=== PATIENT | male | born 1965 | race Caucasian/White ===

== ENCOUNTER 2023-01-31 13:49 | Outpatient (AMB) | payer OTHER, SELFPAY ==
[2023-01-31 14:10] VITALS: BP 126/80; PULSE 94; BMI 29.5
--- NOTE | 2023-01-31 14:10 | A.OFFVIS_ITS ---
Intake Vital Signs 01/31/23 14:10 Height 5 ft 8 in Weight 194 lb 0.108 oz BMI 29.5 BP 126/80 Blood Pressure Location Lt brachial Position Sitting Pulse 94 Intake Visit Reasons: [facility] [place] and cardiac cath Intake Note: Follow-up follow-up Cardiac cath at [facility] Intelligence Specialist Required: No Medication List - Last Reconciled 01/31/23 by Sumanth Cunha MD aspirin (Adult Aspirin Regimen) 81 mg PO DAILY atorvastatin 80 mg PO BEDTIME carvedilol 6.25 mg PO BID metformin 500 mg PO DAILY ticagrelor (Brilinta) 90 mg PO BID valsartan 40 mg PO DAILY HPI HPI Comments History of Present Illness Details Pleasant 57 year gentleman who is here for follow-up. He was seen and [facility] when he presented with anterior ST- elevation DE. He had a occluded mid LAD which was treated with drug-eluting stent. He had approximately 80% mid left circumflex stenosis. Echocardiography has shown EF of 35-40%. He is denying any exertional symptoms on follow-up. No chest pains or shortness of breath. No bleeding issues. Taking medications regularly. He has been dieting and exercising regularly and has lost 6 lb in the last week. [facility] Surgical History (Updated 01/31/23 @ 14:17 by GARY Pagan) Hx of cardiac cath Family History (Updated 01/31/23 @ 14:18 by GARY Pagan) Father CAD (coronary artery disease) Mother Cancer Social History (Updated 01/31/23 @ 14:18 by GARY Pagan) Patient Tobacco Use Status: Never used Tobacco Review of Systems Const Denies chills, Denies fatigue, Denies fever(s), Denies frequent falls, Denies weakness, Denies weight gain and Denies weight loss ENT Denies dizziness Card Denies chest pain, Denies leg edema, Denies lightheadedness, Denies palp itations, Denies dyspnea, Denies dyspnea on exertion, Denies orthopnea and Denies other (loss of consciousness) Resp Denies cough, Denies dyspnea and Denies dyspnea on exertion GI Denies hematochezia and Denies change in stool character Musc Denies abnormal gait, Denies muscle weakness, Denies numbness, Denies radiating pain into limb and Denies tingling Neuro Denies abnormal gait, Denies dizziness, Denies frequent falls, Denies numbness, Denies tingling and Denies weakness Endo Denies fatigue and Denies palpitations Physical Exam Vital Signs: Last Vital Signs Pulse 94 01/31/23 14:10 BP 126/80 01/31/23 14:10 BMI result Body Mass Index 29.5 GENERAL APPEARANCE: in no acute distress, pleasant. NECK: no carotid bruit, no jugular venous distention. SKIN: no suspicious lesions, warm and dry. HEART: no murmurs, regular rate and rhythm. LUNGS: clear to auscultation bilaterally. ABDOMEN: soft, nontender. EXTREMITIES: no edema. PERIPHERAL PULSES: equal. NEUROLOGIC: No gross deficits, AAO X 3 Assessment & Plan Assessment & Plan (1) Stable angina: Code(s): I20.8 - Other forms of angina pectoris (2) STEMI (ST elevation myocardial infarction): Code(s): I21.3 - ST elevation (STEMI) myocardial infarction of unspecified site Plan Pleasant 57 year gentleman who is here for follow-up. He had anterior wall DE on January 24 and underwent PCI to mid LAD. He is currently taking aspirin and Brilinta. He has residual disease in the circumflex which is approximately 80% angiographically. We discussed about management of left circumflex artery. I have given him the options that we can wait and do an ischemia driven strategy. Other option is to treat the circumflex as full revascularization has shown better outcomes in reducing the risk of cardiovascular and myocardial infarction (COMPLETE trial). He is more inclined towards treating the LCx. We will arrange PCI to LCx. He will continue same medications for now. I have advised him to continue diet and exercise as before. He is doing cardiac rehabilitation which he can continue after PCI to left circumflex artery. Continue valsartan. Given cardiomyopathy we will arrange repeat echocardiography in few months. He will see us back in 3 months. Thank you for allowing me to participate in the care of your patient. Please feel free to contact me if you have any questions. Orders: Orders Cardiac Cath LT w PCI Today I20.8 - Other forms of angina pectoris Coding Level of Care Code Est Pt Level 4 (42555) Diagnoses Stable angina I20.8 STEMI (ST elevation myocardial infarction) I21.3
== END 2023-01-31 15:17 | disposition home or self-care (01) ==
PROVIDERS: Visit Provider Internal Medicine Cardiovascular Disease
DX: I20.8 Other forms of angina pectoris (principal); I21.3 ST elevation (STEMI) myocardial infarction of unspecified site
CPT/HCPCS: 99214

== ENCOUNTER → 2023-01-31 13:49 | Outpatient (BNVA) | payer OTHER, SELFPAY | PROVIDERS: Visit Provider Internal Medicine Cardiovascular Disease ==

== ENCOUNTER → 2023-02-05 23:59 | Outpatient (BNV) | payer OTHER, SELFPAY | PROVIDERS: Visit Provider Internal Medicine Cardiovascular Disease | DX: I25.118 Atherosclerotic heart disease of native coronary artery with other forms of angina pectoris (principal) | CPT/HCPCS: 92928; 99152 ==

== ENCOUNTER 2023-02-13 10:07 | Outpatient (REF) | payer OTHER, SELFPAY ==
[2023-02-13 11:46] LABS: Hematocrit 39.5 % (42.0-52.0); Hemoglobin 13.1 g/dl (14.0-18.0); Mean Corpuscular HGB Conc 33.2 g/dl (31.0-36.0); Mean Corpuscular Hemoglobin 28.5 pg (27.0-33.0); Mean Corpuscular Volume 86.1 fL (80.0-98.0); Platelet Count 264 X10*3/uL (160-400); Red Blood Count 4.59 X10*6/uL (4.60-5.80); Red Cell Distribution Width 12.1 % (11.0-16.0); White Blood Count 6.4 X10*3/uL (4.8-10.8)
[2023-02-13 12:10] LABS: B Type Natriuretic Peptide 106 pg/mL (<100)
[2023-02-13 12:11] LABS: Alanine Aminotransferase 37 U/L (0-40); Albumin Level 4.5 g/dL (3.5-5.0); Alkaline Phosphatase 83 U/L (39-117); Anion Gap 13 (12-20); Aspartate Amino Transferase 21 U/L (5-37); Bilirubin Direct 0.3 mg/dL (0.0-0.5); Bilirubin Total 0.8 mg/dL (0.0-1.0); Blood Urea Nitrogen 24 mg/dL (9-16); Calcium 9.7 mg/dL (8.4-10.2); Carbon Dioxide 25 mmol/L (22-29); Chloride 101 mmol/L (96-108); Estimated Glomerular Filt Rate > 60; Glucose Random 162 mg/dL (60-115); Potassium 4.4 mmol/L (3.3-5.1); Sodium 135 mmol/L (135-145); Total Protein 7.1 g/dL (6.5-8.0)
== END 2023-02-13 10:08 | disposition home or self-care (01) ==
LOC: HO.LAB 10:07
PROVIDERS: PCP Internal Medicine; Visit Provider Internal Medicine Cardiovascular Disease
DX: I20.89 Other forms of angina pectoris (principal)
CPT/HCPCS: 36415; 80048; 80076; 83880; 84484; 85027

== ENCOUNTER 2023-02-19 14:50 | Outpatient (AMB) | payer OTHER, SELFPAY ==
[2023-02-19 15:04] VITALS: BP 110/82; PULSE 78; BMI 29.5
--- NOTE | 2023-02-19 15:04 | A.OFFVIS_ITS ---
Intake Vital Signs 02/19/23 15:04 Height 5 ft 8 in Weight 194 lb 0.108 oz BMI 29.5 BP 110/82 Blood Pressure Location Lt brachial Position Sitting Pulse 78 Intake Visit Reasons: 2 wk s/p cath Intake Note: 2 wk s/p cath Chief Mate Required: No Medication List - Last Reconciled 02/19/23 by Alize Ayers NP-C aspirin (Adult Aspirin Regimen) 81 mg PO DAILY atorvastatin 80 mg PO BEDTIME carvedilol 6.25 mg PO BID ticagrelor (Brilinta) 90 mg PO BID HPI 2 wk s/p cath HPI Details Te is a 57-year-old male with no significant past medical for history who recently had anterior STEMI with stent placement to the mid LAD, residual left circumflex stenosis and repeat cardiac catheterization with stenting to the left circumflex. Twelve days after his stenting he had left arm weakness and left face numbness and was [place] [facility] [place]. MRI showed no acute stroke and his symptoms resolved. Today he reports that he has been feeling weak and tired since his cardiac catheterization. He has not been getting any chest discomfort. He denies shortness of breath, palpitations, presyncope, syncope, PND, orthopnea or edema. His right radial catheterization site is healing well. He no longer has any left arm weakness. No new neurological symptoms. Taking meds as directed. No bleeding issues reported. 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 Asking about going on disability as his work is very emotionally stressful. [facility] Medical History (Updated 02/21/23 @ 16:36 by KATHERINE Joseph) STEMI (ST elevation myocardial infarction) Surgical History (Updated 02/21/23 @ 16:36 by KATHERINE Joseph) Hx of cardiac cath Family History Father CAD (coronary artery disease) Mother Cancer Social History Patient Tobacco Use Status: Never used Tobacco Review of Systems Const Details: Fatigue All systems reviewed & are unremarkable except as noted in HPI and below Card Denies chest pain at rest and Denies chest pain with activity Neuro Details: Had left arm weakness and left face numbness which has fully resolved Physical Exam Vital Signs: Last Vital Signs Pulse 78 02/19/23 15:04 BP 110/82 02/19/23 15:04 BMI result Body Mass Index 29.5 Const General: cooperative, healthy appearing, comfortable and no acute distress Orientation/consciousness: patient oriented x3 HEENT Head: Yes normal to inspection Neck Neck: Yes normal visual inspection Resp Effort & Inspection: normal respiratory effort Auscultation: clear to auscultation bilaterally, no crackles, no rales, no rhonchi and no wheezes Cardio Jugular venous distension: no JVD Rate: regular rate Rhythm: regular rhythm Heart sounds: S1 normal heart sound present, S2 normal heart sound present, no murmurs and no rubs Neuro General: patient oriented x3 Extrem Other: Right radial catheterization site well healed, easily palpable radial pulse and hand assessment normal General: Yes normal to inspection Psych Appearance: grossly normal Mental Status: mental status grossly normal Speech and movement: Normal speech and movement present Assessment & Plan Assessment & Plan (1) STEMI (ST elevation myocardial infarction): Code(s): I21.3 - ST elevation (STEMI) myocardial infarction of unspecified site Qualifiers: Involved coronary artery: LAD coronary artery Qualified Code(s): I21.02 - ST elevation (STEMI) myocardial infarction involving left anterior descending coronary artery Plan: Presented [place] [facility] with chest discomfort on 01/24/2023. EKG showed ST elevations anteriorly. Underwent cardiac catheterization showing mid LAD 100% stenosis, left circumflex mid 75% stenosis, JEREMIAH placed to the LAD. He started on aspirin indefinitely. Brilinta 90 mg b.i.d. uninterrupted for at least 1 year. Echocardiogram initially showed EF 35-40%, mid to distal anterior septal wall akinetic, mid to distal inferior septal wall akinetic, apex dyskinetic, no definite LV thrombus noted. He then underwent repeat cardiac catheterization on 02/05/2023 and had JEREMIAH placed to the left circumflex for 80% stenosis. Mid LAD stent was patent. On 02/17 he presented to [facility] with report of intermittent chest pain, left arm weakness and left face numbness. Troponins were negative. A CT angio of the head and neck was negative for acute findings. MRI of the brain also negative for acute stroke. Echocardiogram done 02/18/2023 showed mild LVH, EF 50-60%, can not exclude mid to distal septal wall hypokinesis, RV function normal. His symptoms resolved. Today he reports that he has been doing well for the last 2 days since his hospital discharge. He has had no recurrent neurological type symptoms. He has no chest discomfort at rest or with light activity. He plans to start cardiac rehab in the near future. He is reporting ongoing fatigue. Spent time reviewing all the above with him. Signs and symptoms of angina discussed. Continue medical management with aspirin, Brilinta, high-dose atorvastatin, carvedilol. Blood pressure on low side at 110/82. Will hold off on addition of Entresto as blood pressure low and EF has normalized. Will check Holter monitor to assess for any arrhythmia. Pulse is very regular on examination today. Cardiology follow-up in 2 months, sooner if needed. Emergency care if ever needed for concerning symptoms (2) Coronary artery disease: Code(s): I25.10 - Atherosclerotic heart disease of [place] coronary artery without angina pectoris Qualifiers: Coronary Disease-Associated Artery/Lesion type: [place] artery [place] vs. transplanted heart: [place] heart Associated angina: without angina Qualified Code(s): I25.10 - Atherosclerotic heart disease of [place] coronary artery without angina pectoris Plan: As above (3) S/P cardiac catheterization: Comment: 01/24/2023, occluded mid LAD, JEREMIAH placed, culprit lesion, residual 80% mid circumflex stenosis Code(s): Z98.890 - Other specified postprocedural states (4) S/P cardiac catheterization: Comment: 02/05/2023 patent stent in the mid LAD, 80% stenosis of mid circumflex, JEREMIAH placed. Code(s): Z98.890 - Other specified postprocedural states Plan: Right radial catheterization site healing well (5) TIA (transient ischemic attack): Comment: 02/17/2023, symptom of left arm weakness and left face numbness. CTA and MRI showed no acute stroke Code(s): G45.9 - Transient cerebral ischemic attack, unspecified Plan: Symptoms concerning for TIA occurring on 02/17/2023. Left arm weakness and left facial numbness. Evaluate [place] [facility] with CTA of the head and neck showing no acute findings. An MRI of the brain showed no stroke. Presumed to have TIA. Continued on aspirin and Brilinta. No residual symptoms. Will check Holter monitor for completeness. Orders: Orders ECG 5 day holter monitor 02/19/23 G45.9 - Transient cerebral ischemic attack, unspecified Medications: New atorvastatin 80 mg PO BEDTIME 90 tabs 1RF carvedilol must administer with a meal/food 3.125 mg PO BID 30 days 60 tabs 5RF Changed From ticagrelor (Brilinta) 90 mg PO BID To ticagrelor (Brilinta) 90 mg PO BID 90 days 180 tabs 3RF Coding Level of Care Code Est Pt Level 4 (23453) Diagnoses ST elevation myocardial infarction involving left anterior descending (LAD) coronary artery I21.02 Involved coronary artery: LAD coronary artery Coronary artery disease involving [place] coronary artery of [place] heart without angina pectoris I25.10 Coronary Disease-Associated Artery/Lesion type: [place] artery [place] vs. transplanted heart: [place] heart Associated angina: without angina S/P cardiac catheterization Z98.890 TIA (transient ischemic attack) G45.9 Time Spent (min) 38
== END 2023-02-19 16:02 | disposition home or self-care (01) ==
PROVIDERS: Visit Provider Nurse Practitioner Family
DX: I21.02 ST elevation (STEMI) myocardial infarction involving left anterior descending coronary artery (principal); I25.10 Atherosclerotic heart disease of native coronary artery without angina pectoris; Z98.890 Other specified postprocedural states; G45.9 Transient cerebral ischemic attack, unspecified
CPT/HCPCS: 99214

== ENCOUNTER → 2023-02-19 14:50 | Outpatient (BNVA) | payer OTHER, SELFPAY | PROVIDERS: Visit Provider Nurse Practitioner Family ==

== ENCOUNTER → 2023-02-26 09:04 | Outpatient (REF) | payer OTHER, SELFPAY ==
--- NOTE | 2023-02-26 09:07 | HM_ITS ---
Conclusion: 1. Patient was monitored for total period of 4 days and 23 hours with significant artifact noted in 1 of the leads 2. Baseline was normal sinus rhythm with average heart rate of 70 beats per minute 3. No significant pauses noted 4. Frequent PVCs noted with total burden of 3% 5. Patient marked the counter 1 time with no dietary record correlating with sinus rhythm MTDD
== END ==
LOC: HO.CARD 09:04
PROVIDERS: PCP Internal Medicine; Visit Provider Nurse Practitioner Family
DX: G45.9 Transient cerebral ischemic attack, unspecified (principal)
CPT/HCPCS: 93242

== ENCOUNTER → 2023-02-26 09:07 | Outpatient (BNV) | payer OTHER, SELFPAY | PROVIDERS: PCP Internal Medicine; Visit Provider Internal Medicine Cardiovascular Disease | DX: I49.3 Ventricular premature depolarization (principal) | CPT/HCPCS: 93244 ==

== ENCOUNTER 2023-04-17 10:15 | Outpatient (AMB) | payer OTHER, SELFPAY ==
[2023-04-17 10:21] VITALS: BP 130/60; PULSE 80; BMI 29.5
--- NOTE | 2023-04-17 10:21 | A.OFFVIS_ITS ---
Intake Vital Signs 04/17/23 10:21 Height 5 ft 8 in Weight 194 lb 0.108 oz BMI 29.5 BP 130/60 Blood Pressure Location Lt brachial Position Sitting Pulse 80 Pulse Source Pulse Oximeter Intake Visit Reasons: f/up per DC Intake Note: f/u per DC patient its fine Planner Scheduler Required: No Accompanied by: Self / Same As Patient Medication List - Last Reconciled 04/17/23 by Sumanth Cunha MD aspirin (Adult Aspirin Regimen) 81 mg PO DAILY atorvastatin 80 mg PO BEDTIME carvedilol 3.125 mg PO BID 30 days ticagrelor (Brilinta) 90 mg PO BID 90 days HPI HPI Comments History of Present Illness Details Pleasant 57 year gentleman who is here for follow-up. He was seen and [facility] when he presented with anterior ST- elevation MA. He had a occluded mid LAD which was treated with drug-eluting stent. He had approximately 80% mid left circumflex stenosis. Echocardiography has shown EF of 35-40%. He is denying any exertional symptoms on follow-up. No chest pains or shortness of breath. No bleeding issues. Taking medications regularly. He has been dieting and exercising regularly and has lost 6 lb in the last week. 04/17/2023: He returns for follow-up. He was taken for circumflex PCI. Post PCI he had significant symptoms including dizziness lightheadedness and chest pains. He had been to the emergency department if you time. He was told that he has mild TIA also. During 1 of the admissions his losartan was discontinued and since then he has improved back to normal. It appears he has symptoms are related mostly to orthostasis and low blood pressure. He is exercising and feeling good. His ejection fraction on repeat echocardiogram done in [facility] in February was 55-60%. I have reassured him currently. He is taking medication regularly. We have decided to continue the current medications and make no changes currently. [facility] Medical History (Updated 02/21/23 @ 16:36 by KATHERINE Joseph) STEMI (ST elevation myocardial infarction) Surgical History Hx of cardiac cath Family History Father CAD (coronary artery disease) Mother Cancer Social History Patient Tobacco Use Status: Never used Tobacco Review of Systems Const Reports chills, Reports fatigue, Reports fever(s), Reports frequent falls, Reports weakness, Reports weight gain and Reports weight loss ENT Reports dizziness Card Reports chest pain, Reports leg edema, Reports lightheadedness, Reports palpitations, Reports dyspnea and Reports dyspnea on exertion Resp Reports cough, Reports dyspnea and Reports dyspnea on exertion GI Reports hematochezia Musc Reports abnormal gait, Reports muscle weakness, Reports numbness, Reports radiating pain into limb and Reports tingling Neuro Reports abnormal gait, Reports dizziness, Reports frequent falls, Reports numbness, Reports tingling and Reports weakness Endo Reports fatigue and Reports palpitations Physical Exam Vital Signs: Last Vital Signs Pulse 80 04/17/23 10:21 BP 130/60 04/17/23 10:21 BMI result Body Mass Index 29.5 GENERAL APPEARANCE: in no acute distress, pleasant. NECK: no carotid bruit, no jugular venous distention. SKIN: no suspicious lesions, warm and dry. HEART: no murmurs, regular rate and rhythm. LUNGS: clear to auscultation bilaterally. ABDOMEN: soft, nontender. EXTREMITIES: no edema. PERIPHERAL PULSES: equal. NEUROLOGIC: No gross deficits, AAO X 3 Assessment & Plan Assessment & Plan (1) Stable angina: Code(s): I20.8 - Other forms of angina pectoris (2) S/P cardiac catheterization: Comment: 02/05/2023 patent stent in the mid LAD, 80% stenosis of mid circumflex, JEREMIAH placed. Code(s): Z98.890 - Other specified postprocedural states (3) S/P cardiac catheterization: Comment: 01/24/2023, occluded mid LAD, JEREMIAH placed, culprit lesion, residual 80% mid circumflex stenosis Code(s): Z98.890 - Other specified postprocedural states Plan Pleasant 57 year gentleman is here for follow-up. He was seen for anterior wall MA then primary PCI was performed. Subsequent to that he was taken for circumflex PCI. He has done well since then. Blood pressure control is good. He is on aspirin and Brilinta and has no concerns currently. He had a few visits to ER for dizziness and lightheadedness and feeling generally unwell which were due to low blood pressure due to losartan. His blood pressure is better at this stage. His ejection fraction is improved back to normal and he does not need any ARB currently. Same medications for now. He will see us back in few months. Thank you for allowing me to participate in the care of your patient. Please feel free to contact me if you have any questions. Coding Level of Care Code Est Pt Level 4 (53348) Diagnoses Stable angina I20.8 S/P cardiac catheterization Z98.890
== END 2023-04-17 11:08 | disposition home or self-care (01) ==
PROVIDERS: PCP Internal Medicine; Visit Provider Internal Medicine Cardiovascular Disease
DX: I20.8 Other forms of angina pectoris (principal); Z98.890 Other specified postprocedural states
CPT/HCPCS: 99214

== ENCOUNTER → 2023-04-17 10:15 | Outpatient (BNVA) | payer OTHER, SELFPAY | PROVIDERS: PCP Internal Medicine; Visit Provider Internal Medicine Cardiovascular Disease ==

== ENCOUNTER 2023-12-16 15:03 | Outpatient (AMB) | payer OTHER, SELFPAY ==
[2023-12-16 15:09] VITALS: BP 110/60; PULSE 95; BMI 29.7
--- NOTE | 2023-12-16 15:09 | MHC.OFFVIS ---
Vital Signs 12/16/23 15:09 Height 5 ft 8 in Weight 195 lb 5.273 oz BMI 29.7 BP 110/60 Blood Pressure Location Lt brachial Position Sitting Pulse 95 Intake Visit Reasons: (r/s x 2) 4 mos followup Intake Note: 4 mth f/up./ sharp pain on the center of left side for the past 4weeks, left and right arms become tightness. 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 He was seen and [facility] when he presented with anterior ST-elevation ID. He had a occluded mid LAD which was treated with drug-eluting stent. He had approximately 80% mid left circumflex stenosis. Echocardiography has shown EF of 35-40%. He is denying any exertional symptoms on follow-up. No chest pains or shortness of breath. No bleeding issues. Taking medications regularly. He has been dieting and exercising regularly and has lost 6 lb in the last week. 04/17/2023: He returns for follow-up. He was taken for circumflex PCI. Post PCI he had significant symptoms including dizziness lightheadedness and chest pains. He had been to the emergency department if you time. He was told that he has mild TIA also. During 1 of the admissions his losartan was discontinued and since then he has improved back to normal. It appears he has symptoms are related mostly to orthostasis and low blood pressure. He is exercising and feeling good. His ejection fraction on repeat echocardiogram done in [facility] in February was 55-60%. I have reassured him currently. He is taking medication regularly. We have decided to continue the current medications and make no changes currently. : he is here for follow-up. Previously was doing fine but today he has multiple complaints. He said he had a headache recently which was on the back of his head we stayed for 2 days. He also has been significantly forgetful and can not concentrate at work like before. He has been dizzy at times. Noticed that his A1c has gone up because he did not exercise for few months. He was previously taken off the antihypertensives because of dizziness and low blood pressure. He has also stopped the carvedilol. His blood pressure is normal currently. He also has been needle like sensation in the left side of his chest. he also has been experiencing bilateral forearm heaviness which happens randomly and does not happen with activity. A lot of different complaints. He is due to see endocrinology soon. [facility] Medical History (Updated 12/16/23 @ 19:15 by Sumanth Cunha MD) STEMI (ST elevation myocardial infarction) Surgical History Hx of cardiac cath Family History Father CAD (coronary artery disease) Mother Cancer Social History Patient Tobacco Use Status: Never used Tobacco Review of Systems Const Denies chills, Denies fatigue, Denies fever(s), Denies frequent falls, Denies weakness, Denies weight gain and Denies weight loss ENT Denies dizziness Card Reports chest pain, Denies leg edema, Denies lightheadedness, Denies palpitations, Denies dyspnea and Denies dyspnea on exertion Resp Denies cough, Denies dyspnea and Denies dyspnea on exertion GI Denies hematochezia Musc Denies abnormal gait, Denies muscle weakness, Denies numbness, Reports radiating pain into limb and Denies tingling Neuro Denies abnormal gait, Denies dizziness, Denies frequent falls, Denies numbness, Denies tingling and Denies weakness Endo Denies fatigue and Denies palpitations Physical Exam Vital Signs: Last Vital Signs Pulse 95 12/16/23 15:09 BP 110/60 12/16/23 15:09 BMI result Body Mass Index 29.7 GENERAL APPEARANCE: in no acute distress, pleasant. NECK: no carotid bruit, no jugular venous distention. SKIN: no suspicious lesions, warm and dry. HEART: no murmurs, regular rate and rhythm. LUNGS: clear to auscultation bilaterally. ABDOMEN: soft, nontender. EXTREMITIES: no edema. PERIPHERAL PULSES: equal. NEUROLOGIC: No gross deficits, AAO X 3 Office Procedures EKG Details: Sinus rhythm 95 beats per minute, normal axis, premature atrial complexes, can not rule out anterior infarct, QTC 427 milliseconds. [id number], Complete Assessment & Plan Assessment & Plan (1) Headache: Code(s): R51.9 - Headache, unspecified Category: Medical (2) Coronary artery disease: Code(s): I25.10 - Atherosclerotic heart disease of [place] coronary artery without angina pectoris Category: Medical Qualifiers: Associated angina: without angina Coronary Disease-Associated Artery/Lesion type: [place] artery [place] vs. transplanted heart: [place] heart Qualified Code(s): I25.10 - Atherosclerotic heart disease of [place] coronary artery without angina pectoris (3) Stable angina: Code(s): I20.8 - Other forms of angina pectoris Category: Medical Plan Pleasant 58 year gentleman who is here for follow-up. He was seen previously for coronary disease. He presented with anterior wall ID and underwent primary PCI to LAD. Subsequently he was taken for circumflex PCI. Subsequent to circumflex PCI he had some dizziness and significant symptoms which brought him to emergency department a few times. It was noted that his blood pressure was low and his medications were adjusted any improved subsequently. At 1 stage also he had admission to hospital and was thought to have a mild TIA. He improved significantly after that but now is returning with multiple complaints. He said he stopped exercising for few months and has gained some weight and also his A1c has been 6.9. He has been experiencing dizziness, headaches, confusion and he is unable to concentrate at work. He had 2 days of persistent headache recently. I have advised him to do a CT head because he is on aspirin and Plavix. We will get this done urgently. This is to rule out any intracranial bleed. I will arrange a stress echocardiogram given his arm heaviness and atypical chest pain and we will also arrange a Holter monitor to rule out any arrhythmia. He he is quite apprehensive about his symptoms. I have advised him to hold the statin for now because sometimes statins can also cause cognitive issues in patients. The link is not strong but till we have clarity about what is going on it would be better to hold. Thank you for allowing me to participate in the care of your patient. Please feel free to contact me if you have any questions. Orders: Orders ECG 7 day holter monitor Today R00.2 - Palpitations CT head/brain wo IV con Today R51.9 - Headache, unspecified CA echo stress exercise Today I25.10 - Atherosclerotic heart disease of [place] coronary artery without angina pectoris Coding Level of Care Code Est Pt Level 5 (48822) Diagnoses Headache R51.9 Coronary artery disease involving [place] coronary artery of [place] heart without angina pectoris I25.10 Associated angina: without angina Coronary Disease-Associated Artery/Lesion type: [place] artery [place] vs. transplanted heart: [place] heart Stable angina I20.8 CPT Codes EKG - CPT: [id number], Complete ([id number])
== END 2023-12-16 16:15 | disposition home or self-care (01) ==
PROVIDERS: PCP Internal Medicine; Visit Provider Internal Medicine Cardiovascular Disease
DX: I25.118 Atherosclerotic heart disease of native coronary artery with other forms of angina pectoris (principal); R51.9 Headache, unspecified; Z98.890 Other specified postprocedural states; I47.10 Supraventricular tachycardia, unspecified
CPT/HCPCS: 93010; 99214

== ENCOUNTER → 2023-12-16 15:03 | Outpatient (BNVA) | payer OTHER, SELFPAY | PROVIDERS: PCP Internal Medicine; Visit Provider Internal Medicine Cardiovascular Disease | DX: I25.118 Atherosclerotic heart disease of native coronary artery with other forms of angina pectoris (principal); R51.9 Headache, unspecified; I25.2 Old myocardial infarction | CPT/HCPCS: 93005 ==

== ENCOUNTER 2023-12-16 16:46 | Outpatient (REF) | payer OTHER, SELFPAY ==
--- NOTE | ~2023-12-16 | CT_ITS ---
EXAMINATION: CT head/brain wo IV con CLINICAL INFORMATION: Reason for Exam HEADACHE COMPARISON: None available TECHNIQUE: Contiguous axial imaging was performed from the skull base to vertex without intravenous contrast. Sagittal and coronal reformatted images were obtained. This CT examination was performed using dose optimization techniques as appropriate, variously including the following: * Automated exposure control * Adjustment of mA and/or kV according to patient size (this includes techniques or standardized protocols for targeted exams where dose is matched to indication/reason for exam; i.e. extremities or head) Use of iterative reconstruction technique DLP: 944 mGy-cm FINDINGS: There is no evidence of acute intracranial hemorrhage. No mass-effect or ventricular shift is noted. No acute, territorial loss of willis-white differentiation. Chronic right cerebellar hemisphere lacunar infarction. Generalized cerebral volume loss with associated ventricular and sulcal prominence.Periventricular and subcortical white matter hypodensity is nonspecific but likely represents chronic microvascular ischemic change. No depressed calvarial fracture. The partially visualized paranasal sinuses have trace mucosal thickening. The mastoid air cells are clear. CT/CT head/brain wo IV con IMPRESSION: No acute intracranial hemorrhage or territorial loss of willis-white differentiation. Chronic right cerebellar hemisphere lacunar infarction.
== END 2023-12-16 16:47 | disposition home or self-care (01) ==
LOC: HO.CT 16:46
PROVIDERS: Visit Provider Internal Medicine Cardiovascular Disease
DX: R51.9 Headache, unspecified (principal)
CPT/HCPCS: 70450

== ENCOUNTER 2024-02-26 15:00 | Outpatient (AMB) | payer OTHER, SELFPAY ==
[2024-02-26 15:01] VITALS: BP 150/90; PULSE 90; BMI 30.4
--- NOTE | 2024-02-26 15:01 | A.OFFVIS_ITS ---
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 He was seen and [facility] when he presented with anterior ST- elevation [place]. He had a occluded mid LAD which was treated with drug-eluting stent. He had approximately 80% mid left circumflex stenosis. Echocardiography has shown EF of 35-40%. He is denying any exertional symptoms on follow-up. No chest pains or shortness of breath. No bleeding issues. Taking medications regularly. He has been dieting and exercising regularly and has lost 6 lb in the last week. 04/17/2023: He returns for follow-up. He was taken for circumflex PCI. Post PCI he had significant symptoms including dizziness lightheadedness and chest pains. He had been to the emergency department if you time. He was told that he has mild TIA also. During 1 of the admissions his losartan was discontinued and since then he has improved back to normal. It appears he has symptoms are related mostly to orthostasis and low blood pressure. He is exercising and feeling good. His ejection fraction on repeat echocardiogram done in [facility] in February was 55-60%. I have reassured him currently. He is taking medication regularly. We have decided to continue the current medications and make no changes currently. : he is here for follow-up. Previously was doing fine but today he has multiple complaints. He said he had a headache recently which was on the back of his head we stayed for 2 days. He also has been significantly forgetful and can not concentrate at work like before. He has been dizzy at times. Noticed that his A1c has gone up because he did not exercise for few months. He was previously taken off the antihypertensives because of dizziness and low blood pressure. He has also stopped the carvedilol. His blood pressure is normal currently. He also has been needle like sensation in the left side of his chest. he also has been experiencing bilateral forearm heaviness which happens randomly and does not happen with activity. A lot of different complaints. He is due to see endocrinology soon. 02/26/24: He returns for follow-up. He has been experiencing some shortness of breath with activities. He also feels weak when he is walking. He has noticed his blood pressure to be elevated at home. In the office currently his blood pressure is elevated. He previously was on antihypertensive medications but he was getting low blood pressures and was quite symptomatic from that and during an admission at [facility] he was taken off the antihypertensive medications. He is denying palpitations but EKGs showing some PVCs. [facility] Medical History (Updated 02/26/24 @ 15:39 by Sumanth Cunha MD) STEMI (ST elevation myocardial infarction) Surgical History Hx of cardiac cath Family History Father CAD (coronary artery disease) Mother Cancer Social History Patient Tobacco Use Status: Never used Tobacco Review of Systems Const Denies chills, Denies fatigue, Denies fever(s), Denies frequent falls, Denies weakness, Denies weight gain and Denies weight loss ENT Denies dizziness Card Denies chest pain, Denies leg edema, Denies lightheadedness, Denies palpitations, Reports dyspnea and Reports dyspnea on exertion Resp Denies cough, Reports dyspnea and Reports dyspnea on exertion GI Denies hematochezia Musc Denies abnormal gait, Denies muscle weakness, Denies numbness, Denies radiating pain into limb and Denies tingling Neuro Denies abnormal gait, Denies dizziness, Denies frequent falls, Denies numbness, Denies tingling and Denies weakness Endo Denies fatigue and Denies palpitations Physical Exam Vital Signs: Last Vital Signs Pulse 90 02/26/24 15:01 BP 150/90 H 02/26/24 15:01 BMI result Body Mass Index 30.4 GENERAL APPEARANCE: in no acute distress, pleasant. NECK: no carotid bruit, no jugular venous distention. SKIN: no suspicious lesions, warm and dry. HEART: no murmurs, regular rate and rhythm with irregularities. LUNGS: clear to auscultation bilaterally. ABDOMEN: soft, nontender. EXTREMITIES: no edema. PERIPHERAL PULSES: equal. NEUROLOGIC: No gross deficits, AAO X 3 Office Procedures EKG Details: NSR 84/min, PVCs, nonspecific ST-T wave abnormality, QTc 406 msec. [id number], Complete Assessment & Plan Assessment & Plan (1) STRANGE (dyspnea on exertion): Code(s): R06.09 - Other forms of dyspnea Category: Medical (2) Stable angina: Code(s): I20.8 - Other forms of angina pectoris Category: Medical (3) PVC (premature ventricular contraction): Code(s): I49.3 - Ventricular premature depolarization Category: Medical Plan 58-year-old gentleman who is here for follow-up. He has known history of coronary artery disease with previous PCI to LAD and circumflex arteries. He has been on dual antiplatelet therapy at this stage. Blood pressure is elevated and he has premature ventricular complexes on the EKG. I have advised him to start carvedilol 3.125 mg twice a day. He is very sensitive to medications and I am starting at low dose. We will do some basic blood workup today. I will arrange an echocardiogram for him. Will see us back in couple of months. Thank you for allowing me to participate in the care of your patient. Please feel free to contact me if you have any questions. Orders: Orders Basic Metabolic Panel Today R06.09 - Other forms of dyspnea Complete Blood Count no Diff Today R06.09 - Other forms of dyspnea B Type Natriuretic Peptide Today R06.09 - Other forms of dyspnea TSH reflex Free T4 Today R06.09 - Other forms of dyspnea Magnesium Today R06.09 - Other forms of dyspnea CA echo transthorac w con Today R06.09 - Other forms of dyspnea Medications: New carvedilol must administer with a meal/food 3.125 mg PO BID 60 tabs 3RF R06.09 - Other forms of dyspnea Coding Level of Care Code Est Pt Level 4 (49445) Diagnoses STRANGE (dyspnea on exertion) R06.09 Stable angina I20.8 PVC (premature ventricular contraction) I49.3 CPT Codes EKG - CPT: [id number], Complete ([id number])
== END 2024-02-26 16:18 | disposition home or self-care (01) ==
PROVIDERS: PCP Internal Medicine; Visit Provider Internal Medicine Cardiovascular Disease
DX: R06.09 Other forms of dyspnea (principal); I20.89 Other forms of angina pectoris; I49.3 Ventricular premature depolarization
CPT/HCPCS: 93010; 99214

== ENCOUNTER → 2024-02-28 10:57 | Outpatient (REF) | payer OTHER, SELFPAY ==
--- NOTE | 2024-02-28 11:05 | CA_ITS ---
Acquisition Time: 2024-02-28 11:02:14 Total Exercise Time: 00:11:30 Test Indications: Dyspnea Medications: ASA ATORVASTATIN CLOPIDOGREL CARVEDILOL Protocol: DOUG Max HR: 157 BPM 96% of Pred: 163 BPM Max BP: 176/086 mmHG Max Work Load: 13.7 METS Exercise stress test with exercise 11 min 30 sec of Doug protocol, achieving 96% MPHR, with mild sob, no chest discomfort, with isolated PACs and PVCs, with normotensive response to exercise, with horizontal ST depression aVF and V4-V5 on peak exercise EKG tracing ( could be artifactual), then J point depressions with upsloping STs that improves quickly. EKGs normal by 1 min of recovery and remainder of recovery - less likely to be ischemic findings. Echo images obtained by tech at rest and immediately post peak exercise. Definity contrast used for rest images only. Pt developed a side effect of sharp low back pain post definity injection ( known side effect) which resolved after a few minutes without any treatment. Definity not resused for his stress images. Test reviewed with Dr Sherman Referred By: Sumanth Cunha Overread By: YENNIFER FUENTES
== END ==
LOC: HO.CARD 10:57
PROVIDERS: PCP Internal Medicine; Visit Provider Internal Medicine Cardiovascular Disease
DX: I25.10 Atherosclerotic heart disease of native coronary artery without angina pectoris (principal)
CPT/HCPCS: 93350; Q9957

== ENCOUNTER → 2024-02-28 11:05 | Outpatient (BNV) | payer OTHER, SELFPAY | PROVIDERS: PCP Internal Medicine; Visit Provider Nurse Practitioner Family | DX: I25.2 Old myocardial infarction (principal); I49.1 Atrial premature depolarization; I49.3 Ventricular premature depolarization | CPT/HCPCS: 93016; 93018; 93350; 93352 ==

== ENCOUNTER → 2024-03-02 12:59 | Outpatient (REF) | payer OTHER, SELFPAY ==
--- NOTE | 2024-03-02 13:03 | CA_ITS ---
Transthoracic Echocardiogram Patient (Last, First, Middle): Te Jaramillo, Gender: Male Date of : 1965 Age: 58 Procedure Date: 03/02/2024 Procedure Type: Transthoracic Echocardiogram Location: OP Height: 172.72 cm Weight: 88. kg BSA: 2.02 m2 Heart Rate: bpm BP: 124 / 80 mmHg Supervisor D[employer]: BRIDGET Referring MD: Sumanth Cunha MD Cooper Apprentice: Sumanth Cunha MD Symptoms: R06.09 - Other forms of dyspnea Study Quality: Fair Conclusions: - Normal left ventricular size and systolic function. There is mildly increased left ventricular wall thickness. The visually estimated ejection fraction is between 55-60%. - Regional wall motion abnormalities can not be excluded due to suboptimal endocardial definition and apical foreshortening. - Normal right ventricular cavity size and systolic function. Findings Left Ventricle Normal left ventricular size and systolic function. There is mildly increased left ventricular wall thickness. The visually estimated ejection fraction is between 55-60%. Regional wall motion abnormalities can not be excluded due to suboptimal endocardial definition. Diastolic function is normal for age. Right Ventricle Normal right ventricular cavity size and systolic function. Atria The left atrium is normal in size. Aortic Valve Normal aortic valve structure and function. There is no aortic valve stenosis. There is no aortic valve regurgitation. Mitral Valve Normal mitral valve structure and function. There is no mitral valve regurgitation. There is no mitral valve stenosis. Pulmonic Valve The pulmonic valve is likely normal. Tricuspid Valve Normal tricuspid valve structure. There is trace tricuspid valve regurgitation. Normal right atrial pressure. There is no evidence of pulmonary hypertension. Great Vessels All visible segments of the aorta are normal in size. Venous The inferior vena cava is normal in size and collapses greater than 50% with inspiration. Pericardium/Pleural There is no evidence of pericardial effusion. Prior Study Comparison No prior study available for comparison. Measurements 2D Linear Measurements IVSd: 1.25 0.6-0.9/0.6-1.0 cm LVIDd: 4.02 3.9-5.3/4.2-5.9 cm LVIDd Index: 1.99 2.4-3.2/2.2-3.1 cm/m2 LVIDs: 2.64 2.0-3.6 cm LVPWd: 1.26 0.7-1.1 cm Ao Root: 3.70 2.1-3.5 cm LA Diam: 3.20 2.7-3.8/3.0-4.0 cm LAIDs Index: 1.58 1.5-2.3 cm/m2 LV Mass: 222.02 67-162/88-224 g LV Mass Index: 109.91 43-95/49-115 g/m2 LVOT Diam: 2.10 3.0+(-)1.3 cm 2D Systolic Function EF 4C: 52.80 >55% EF 2C: 40.40 >55% EF BiP: 46.70 >55% Mitral Valve MV Pk E: 0.46 MV PK A: 0.74 MV Decel Time: 163.00 E/A: 0.60 E'Lateral: 9.46 E'Medial: 5.55 E/E' Med: 8.30 E/E' Lat: 4.90 PHT: 48.00 MVA PHT: 4.58 Decel [place]: 2.82 Aortic Valve AoV Pk Rafita: 1.09 AoV Mn Rafita: 0.68 AoV VTI: 0.21 AoV Pk Grad: 5.00 Aov Mn Grad: 2.00 TIM Cont.VTI: 2.99 LVOT LVOT Pk Rafiat: 0.89 LVOT Mn Rafita: 0.51 LVOT VTI: 0.18 LVOT Pk Grad: 3.00 LVOT Mn Grad: 1.00 LVOT Diam: 2.10 LVOT Area: 3.46 Diastolic Function MV Pk E: 0.46 MV Pk A: 0.74 E/A: 0.60 E'Medial: 5.55 E/E' Med: 8.30 E' Laterial: 9.46 E/E' Lat: 4.90 Right Ventricle TAPSE (mm): 30.00 TVS' Rafita: 11.00 Tricuspid Valve TR Pk Rafita: 1.88 TR Pk Grad: 14.00 RA Press: 3.00 RVSP: 17.00 Great Vessels Aorta Ao Root-2D: 3.70 2.0-3.7 cm Ao Asc: 3.30 2.1-3.4 cm Pulmonary Valve PV Pk Rafita: 1.06 Peak PV Grad: 4.00 Updated in Other Vendor System with Status of Final Sumanth Cunha MD electronically signed on 03/02/2024 8:51:12 PM with status of Final
== END ==
LOC: HO.CARD 12:59
PROVIDERS: PCP Internal Medicine; Visit Provider Internal Medicine Cardiovascular Disease
DX: R06.09 Other forms of dyspnea (principal)
CPT/HCPCS: 93306

== ENCOUNTER → 2024-03-02 13:03 | Outpatient (BNV) | payer OTHER, SELFPAY | PROVIDERS: PCP Internal Medicine; Visit Provider Internal Medicine Cardiovascular Disease | DX: R06.09 Other forms of dyspnea (principal) | CPT/HCPCS: 93306 ==

== ENCOUNTER 2024-04-08 15:30 | Outpatient (AMB) | payer OTHER, SELFPAY ==
[2024-04-08 15:33] VITALS: BP 110/72; PULSE 76; BMI 31.0
--- NOTE | 2024-04-08 15:33 | MHC.OFFVIS ---
Vital Signs 04/08/24 15:33 Height 5 ft 8 in Weight 204 lb 2.369 oz BMI 31.0 BP 110/72 Blood Pressure Location Lt brachial Position Sitting Pulse 76 Pulse Source Pulse Oximeter Intake Visit Reasons: 3 mth f/up Intake Note: 3 mth f/up/echo 03/02 Hay Sorter Required: No Accompanied by: Self / Same As Patient Allergies perflutren [From [employer]] Adverse Reaction (Verified 03/02/24 07:44) Back Pain Medication List - Last Reconciled 04/08/24 by Sumanth Cunha MD aspirin (Adult Aspirin Regimen) 81 mg PO DAILY atorvastatin 80 mg PO BEDTIME carvedilol 3.125 mg PO BID clopidogrel 75 mg PO DAILY HPI Comments Details: Pleasant 58 year gentleman who is here for follow-up. He was seen and [facility] when he presented with anterior ST-elevation NE. He had a occluded mid LAD which was treated with drug-eluting stent. He had approximately 80% mid left circumflex stenosis. Echocardiography has shown EF of 35-40%. He is denying any exertional symptoms on follow-up. No chest pains or shortness of breath. No bleeding issues. Taking medications regularly. He has been dieting and exercising regularly and has lost 6 lb in the last week. 04/17/2023: He returns for follow-up. He was taken for circumflex PCI. Post PCI he had significant symptoms including dizziness lightheadedness and chest pains. He had been to the emergency department if you time. He was told that he has mild TIA also. During 1 of the admissions his losartan was discontinued and since then he has improved back to normal. It appears he has symptoms are related mostly to orthostasis and low blood pressure. He is exercising and feeling good. His ejection fraction on repeat echocardiogram done in [facility] in February was 55-60%. I have reassured him currently. He is taking medication regularly. We have decided to continue the current medications and make no changes currently. : he is here for follow-up. Previously was doing fine but today he has multiple complaints. He said he had a headache recently which was on the back of his head we stayed for 2 days. He also has been significantly forgetful and can not concentrate at work like before. He has been dizzy at times. Noticed that his A1c has gone up because he did not exercise for few months. He was previously taken off the antihypertensives because of dizziness and low blood pressure. He has also stopped the carvedilol. His blood pressure is normal currently. He also has been needle like sensation in the left side of his chest. he also has been experiencing bilateral forearm heaviness which happens randomly and does not happen with activity. A lot of different complaints. He is due to see endocrinology soon. 02/26/24: He returns for follow-up. He has been experiencing some shortness of breath with activities. He also feels weak when he is walking. He has noticed his blood pressure to be elevated at home. In the office currently his blood pressure is elevated. He previously was on antihypertensive medications but he was getting low blood pressures and was quite symptomatic from that and during an admission at [facility] he was taken off the antihypertensive medications. He is denying palpitations but EKGs showing some PVCs. 04/08/2024: He is here for follow-up. He is feeling great. Blood pressure is well controlled. He is taking carvedilol 3.125 mg twice a day. No palpitations or PVCs. No chest discomfort. [facility] Medical History (Updated 02/26/24 @ 15:39 by Sumanth Cunha MD) STEMI (ST elevation myocardial infarction) Surgical History Hx of cardiac cath Family History Father CAD (coronary artery disease) Mother Cancer Social History Patient Tobacco Use Status: Never used Tobacco Review of Systems Const Denies chills, Denies fatigue, Denies fever(s), Denies frequent falls, Denies weakness, Denies weight gain and Denies weight loss ENT Denies dizziness Card Denies chest pain, Denies leg edema, Denies lightheadedness, Denies palpitations, Denies dyspnea and Denies dyspnea on exertion Resp Denies cough, Denies dyspnea and Denies dyspnea on exertion GI Denies hematochezia Musc Denies abnormal gait, Denies muscle weakness, Denies numbness, Denies radiating pain into limb and Denies tingling Neuro Denies abnormal gait, Denies dizziness, Denies frequent falls, Denies numbness, Denies tingling and Denies weakness Endo Denies fatigue and Denies palpitations Physical Exam Vital Signs: Last Vital Signs Pulse 76 04/08/24 15:33 BP 110/72 04/08/24 15:33 BMI result Body Mass Index 31.0 GENERAL APPEARANCE: in no acute distress, pleasant. NECK: no carotid bruit, no jugular venous distention. SKIN: no suspicious lesions, warm and dry. HEART: no murmurs, regular rate and rhythm. LUNGS: clear to auscultation bilaterally. ABDOMEN: soft, nontender. EXTREMITIES: no edema. PERIPHERAL PULSES: equal. NEUROLOGIC: No gross deficits, AAO X 3 Assessment & Plan Assessment & Plan (1) Stable angina: Code(s): I20.8 - Other forms of angina pectoris Category: Medical Plan Pleasant 58 year gentleman who is here for follow-up. He has known history of coronary disease with previous anterior wall NE for which he had primary PCI and subsequently had left circumflex PCI for full revascularization. He had some issues after the 2nd PCI with dizziness and low blood pressures and his medications were held. He did well after that but more recently was complaining of multiple complaints. He underwent echocardiography which showed normal LVEF and his apical segments for for shortened and could not be seen but on stress test clearly he had distal LAD territory wall motion abnormality which was unchanged after stress. I have explained to him that he had some heart damage from the 1st myocardial infarction. Overall his LV function is normal. He is stable currently and doing well with current medicines. He will see us back in 4 months. Thank you for allowing me to participate in the care of your patient. Please feel free to contact me if you have any questions. Coding Level of Care Code Est Pt Level 4 (07551) Diagnoses Stable angina I20.8
== END 2024-04-08 15:54 | disposition home or self-care (01) ==
PROVIDERS: PCP Internal Medicine; Visit Provider Internal Medicine Cardiovascular Disease
DX: I20.89 Other forms of angina pectoris (principal)
CPT/HCPCS: 99214

== ENCOUNTER 2024-08-26 14:48 | Outpatient (AMB) | payer OTHER, SELFPAY ==
--- NOTE | 2024-08-26 14:52 | A.OFFVIS_ITS ---
Vital Signs 08/26/24 14:53 Height 5 ft 8 in Weight 197 lb 15.602 oz BMI 30.1 BP 120/80 Blood Pressure Location Lt brachial Position Sitting Pulse 84 Pulse Source Pulse Oximeter Intake Visit Reasons: 4-6m follow up Intake Note: 4-6 mth f/up Walking Dragline Operator Required: No Accompanied by: Self / Same As Patient Allergies perflutren [From [employer]] Adverse Reaction (Verified 03/02/24 07:44) Back Pain Medication List - Last Reconciled 08/26/24 by Sumanth Cunha MD aspirin (Adult Aspirin Regimen) 81 mg PO DAILY atorvastatin 80 mg PO BEDTIME carvedilol 3.125 mg PO BID clopidogrel 75 mg PO DAILY HPI Comments Details: Pleasant 59 year gentleman who is here for follow-up. He was seen and [facility] when he presented with anterior ST- elevation [place]. He had a occluded mid LAD which was treated with drug-eluting stent. He had approximately 80% mid left circumflex stenosis. Echocardiography has shown EF of 35-40%. He is denying any exertional symptoms on follow-up. No chest pains or shortness of breath. No bleeding issues. Taking medications regularly. He has been dieting and exercising regularly and has lost 6 lb in the last week. 04/17/2023: He returns for follow-up. He was taken for circumflex PCI. Post PCI he had significant symptoms including dizziness lightheadedness and chest pains. He had been to the emergency department if you time. He was told that he has mild TIA also. During 1 of the admissions his losartan was discontinued and since then he has improved back to normal. It appears he has symptoms are related mostly to orthostasis and low blood pressure. He is exercising and feeling good. His ejection fraction on repeat echocardiogram done in [facility] in February was 55-60%. I have reassured him currently. He is taking medication regularly. We have decided to continue the current medications and make no changes currently. : he is here for follow-up. Previously was doing fine but today he has multiple complaints. He said he had a headache recently which was on the back of his head we stayed for 2 days. He also has been significantly forgetful and can not concentrate at work like before. He has been dizzy at times. Noticed that his A1c has gone up because he did not exercise for few months. He was previously taken off the antihypertensives because of dizziness and low blood pressure. He has also stopped the carvedilol. His blood pressure is normal currently. He also has been needle like sensation in the left side of his chest. he also has been experiencing bilateral forearm heaviness which happens randomly and does not happen with activity. A lot of different complaints. He is due to see endocrinology soon. 02/26/24: He returns for follow-up. He has been experiencing some shortness of breath with activities. He also feels weak when he is walking. He has noticed his blood pressure to be elevated at home. In the office currently his blood pressure is elevated. He previously was on antihypertensive medications but he was getting low blood pressures and was quite symptomatic from that and during an admission at [facility] he was taken off the antihypertensive medications. He is denying palpitations but EKGs showing some PVCs. 04/08/2024: He is here for follow-up. He is feeling great. Blood pressure is well controlled. He is taking carvedilol 3.125 mg twice a day. No palpitations or PVCs. No chest discomfort. 08/26/24: Here for follow-up. Under stress because he has lost his job recently. He is actively looking for job. He is concerned that he has no insurance and we will not be able to afford his medications. I have advised him to check with the [employer] dollar program. [facility] Medical History (Updated 02/26/24 @ 15:39 by Sumanth Cunha MD) STEMI (ST elevation myocardial infarction) Surgical History Hx of cardiac cath Family History Father CAD (coronary artery disease) Mother Cancer Social History Patient Tobacco Use Status: Never used Tobacco Review of Systems Const Denies chills, Denies fatigue, Denies fever(s), Denies frequent falls, Denies weakness, Denies weight gain and Denies weight loss ENT Denies dizziness Card Denies chest pain, Denies leg edema, Denies lightheadedness, Denies palpitations, Denies dyspnea and Denies dyspnea on exertion Resp Denies cough, Denies dyspnea and Denies dyspnea on exertion GI Denies hematochezia Musc Denies abnormal gait, Denies muscle weakness, Denies numbness, Denies radiating pain into limb and Denies tingling Neuro Denies abnormal gait, Denies dizziness, Denies frequent falls, Denies numbness, Denies tingling and Denies weakness Endo Denies fatigue and Denies palpitations Physical Exam Vital Signs: Last Vital Signs Pulse 84 08/26/24 14:53 BP 120/80 08/26/24 14:53 BMI result Body Mass Index 30.1 GENERAL APPEARANCE: in no acute distress, pleasant. NECK: no carotid bruit, no jugular venous distention. SKIN: no suspicious lesions, warm and dry. HEART: no murmurs, regular rate and rhythm. LUNGS: clear to auscultation bilaterally. ABDOMEN: soft, nontender. EXTREMITIES: no edema. PERIPHERAL PULSES: equal. NEUROLOGIC: No gross deficits, AAO X 3 Assessment & Plan Assessment & Plan (1) Stable angina: Code(s): I20.8 - Other forms of angina pectoris Category: Medical Plan Pleasant 59 year gentleman who is here for follow-up. He has known history of coronary disease with previous anterior wall [place] for which he had primary PCI and subsequently had left circumflex PCI for full revascularization. Clinically has been stable. No exertional symptoms. Blood pressure well cont rolled. He has lost his insurance unfortunately. He will be checking with [employer] program to see if his medications could be covered through the till he gets a new job/insurance. Thank you for allowing me to participate in the care of your patient. Please feel free to contact me if you have any questions. Coding Level of Care Code Est Pt Level 4 (72057) Diagnoses Stable angina I20.8
[2024-08-26 14:53] VITALS: BP 120/80; PULSE 84; BMI 30.1
--- OUTSIDE RECORDS SUMMARY | 2024-08-26 17:31 | XMS_ITS | Clinical Summary ---
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 0 01/26/2023 Active aspirin 81 MG EC tablet Take 1 tablet (81 mg total) by mouth daily. 0 01/26/2023 Active Brilinta 90 MG TABS tablet 0 03/29/2023 Active Family History Relation Name Status Comments Father Mother Social History Tobacco Use Types Packs/Day Years Used Date Smoking Tobacco: Never Smokeless Tobacco: Never Tobacco Cessation:Counseling Given: Not Answered Alcohol Use Standard Drinks/Week Comments Never 0 (1 standard drink = 0.6 oz pur e alcohol) Sex and Gender Information Value Date Recorded Sex Assigned at Male 03/20/2023 3:44 PM EST Gender Identity Not on file Sexual Orientation Not on file Job Start Date Occupation Industry Not on file Not on file Not on file Last Filed Vital Signs Vital Sign Reading Time Taken Comments Blood Pressure 158/98 08/08/2023 4:15 PM EDT Pulse 82 08/08/2023 4:15 PM EDT Temperature 35.8 ??C (96.4 ??F) 08/08/2023 4:15 PM ED T Respiratory Rate 16 04/11/2023 2:13 PM EST Oxygen Saturation 95% 08/08/2023 4:15 PM EDT Inhaled Oxygen Concentration - - Weight 88.9 kg (196 lb) 08/08/2023 4:15 PM EDT Height 170.2 cm (5' 7 ) 08/08/2023 4:15 PM EDT Body Mass Index 30.7 08/08/2023 4:15 PM EDT Plan of Treatment Health Maintenance Due Date Last Done Comments Hepatitis B Vaccines (1 of 3 - 3-dose series) 1966 Hepatitis C Screening 1966 Depression Screening 1978 BMI Counseling 1984 Preventative Health Evaluation 1984 Colon Cancer Screening (Colonoscopy) 2011 Shingrix-Zoster Vaccine (1 o f 2) 2016 DTap / Tdap / Td (2 - Td or Tdap) 04/09/2017 04/09/2007 COVID-19 Vaccine (3 - 2023-2 5 season) 2024 10/08/2020, 09/18/2020 Influenza Vaccine (#1) 2024 Pneumococcal Vaccine Aged Out No long er eligible based on patient's age to complete this topic RSV Ped < 20 months Aged Out No longe r eligible based on patient's age to complete this topic Care Teams Punch Press Operator Helper Relationship Specialty Start Date End Date Fadi Jaramillo MD PCP - General Internal Medicine 03/20/23
--- OUTSIDE RECORDS SUMMARY | 2024-08-26 17:31 | XMS_ITS ---
Author Name [facility] Organization Unknown History of Medication Use Medication Directions Dispensed Refills Start Date End Date Stat us atorvastatin (LIPITOR) tablet 80 mg Take 1 tablet (80 mg total) by mouth daily. 01/26/2023 active aspirin 81 MG EC tablet Take 1 tablet (81 mg total) by mouth daily. 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
== END 2024-08-26 15:11 | disposition home or self-care (01) ==
LOC: HO.HCS 14:49
PROVIDERS: PCP Internal Medicine; Visit Provider Internal Medicine Cardiovascular Disease
DX: I20.89 Other forms of angina pectoris (principal)
CPT/HCPCS: 99214

== ENCOUNTER → 2024-08-26 14:48 | Outpatient (BNVA) | payer OTHER, SELFPAY | PROVIDERS: PCP Internal Medicine; Visit Provider Internal Medicine Cardiovascular Disease ==

== ENCOUNTER 2024-11-05 14:28 | Emergency (ER) | payer OTHER, SELFPAY ==
--- NOTE | ~2024-11-05 | XR_ITS ---
EXAMINATION: XR CHEST CLINICAL INFORMATION: pain COMPARISON: None available. TECHNIQUE: 2 views of the chest were obtained. FINDINGS: Heart and mediastinal contours are within normal limits. Lungs are clear. There is no pleural effusion. XR/XR chest 2V IMPRESSION: No acute disease. Electronically signed by: Francisco Ames MD 11/05/2024 04:39 PM EDT
--- NOTE | 2024-11-05 14:31 | ECG_ITS ---
Test Reason : chest pain Blood Pressure : */* mmHG Vent. Rate : 74 BPM Atrial Rate : 74 BPM P-R Int : 170 ms QRS Dur : 80 ms QT Int : 342 ms P-R-T Axes : 14 2 61 degrees QTcB Int : 379 ms Normal sinus rhythm Low voltage QRS Borderline ECG When compared with ECG of 20-May-2002 23:31, No significant change was found Referred By: Generic ED Physician Electronically Signed By: TOMA BERNARDO
[2024-11-05 15:10] VITALS: BP 137/89; PULSE 72; RESP 18; TEMP 36.3; O2SAT 98; BMI 29.3
--- NOTE | 2024-11-05 15:10 | ED.CHESTPAIN ---
HPI - Chest Pain General Chief Complaint: Chest Pain Stated Complaint: CP, high bp Time Seen by Provider: 11/05/24 15:32 Source: patient, RN notes reviewed and old records reviewed Mode of arrival: ambulatory Limitations: no limitations History of Present Illness ED Provider: Hong NAILS narrative: 59-year-old male past medical history significant for coronary artery disease status post cardiac catheterization x2, TIA presents for evaluation of chest pressure. Patient reports that he woke up this morning around 7:00 a.m. with a severe chest pressure mostly left-sided. He reports the numbness in both of his arms. His pain did not radiate. His pain has improved but still complains of a pressure that is a 4/10. He reports taking an extra dose of carvedilol and he is unsure if this helped his pain. He has some associated shortness of breath. Denies any fevers, chills, cough, palpitations He continues to complain of a ?heaviness in both of my arms. ? Denies any leg swelling Related Data Previous Rx's ?Medication ?Instructions ?Recorded aspirin 81 mg tablet,delayed 81 mg PO DAILY #90 tabs 02/19/24 release (Adult Aspirin Regimen) clopidogrel 75 mg tablet 75 mg PO DAILY #90 tabs 06/15/24 carvedilol 3.125 mg tablet 3.125 mg PO BID #180 tabs 07/15/24 atorvastatin 80 mg tablet 80 mg PO BEDTIME #90 tabs 08/17/24 Allergies Allergy/AdvReac Type Severity Reaction Status Date / Time perflutren (From Definity) AdvReac Back Pain Verified 11/05/24 15:14 Review of Systems Constitutional: Constitutional: Denies body ache(s), Denies chills, Denies fever(s) and Denies headache(s) Eyes: Eyes: Denies blurry vision ENT: Denies dizziness, Denies dry mouth and Denies headache(s) Cardiovascular: Cardiovascular: Reports chest pain, Reports chest pain at rest, Reports dyspnea and Reports dyspnea on exertion Respiratory: Respiratory: Denies cough, Reports dyspnea and Reports dyspnea on exertion Gastrointestinal: Gastrointestinal: Denies abdominal pain, Denies nausea and Denies vomiting Musculoskeletal: Musculoskeletal: Denies back pain Integumentary/Breasts: Skin/Breast: Denies rash Neurologic: Denies dizziness and Denies headache(s) [facility] Past Medical History Medical History (Updated 11/05/24 @ 19:50 by Te Pitts) STEMI (ST elevation myocardial infarction) Surgical History Hx of cardiac cath Family History Family History Father CAD (coronary artery disease) Mother Cancer Social History Social History Patient Tobacco Use Status: Never used Tobacco Smoked in Last 30 Days: No Use of substances other than those prescribed or required for medical reasons: No Advance Directives: No Advance Directives Information Provided: No Do you have a plan to hurt others: No Plan Physical Exam Vital Signs: Vital Signs: Last Vital Signs Temp 98.1 F 11/05/24 18:23 Pulse 73 11/05/24 18:23 Resp 19 11/05/24 18:23 BP 136/79 11/05/24 18:23 Pulse Ox 95 11/05/24 18:23 O2 Del Method Room Air 11/05/24 18:23 BMI result Body Mass Index 29.3 Const: General: healthy appearing, comfortable, no acute distress, alert and awake Nutritional Appearance: well nourished Orientation/consciousness: patient oriented x3 HEENT: Head: Yes normocephalic and Yes atraumatic Eyes: Eyelids: Yes eyelids normal Conjunctivae: conjunctivae normal Sclerae: sclerae normal Corneas: corneas normal Pupils: Equal, round and reactive pupils present EOM: EOMs intact bilaterally Neck: Neck: Yes full ROM Chest: Other: No chest wall tenderness Chest palpation & inspection: normal inspection of the chest, normal palpation of entire chest wall and no crepitus Resp: Effort & Inspection: normal respiratory effort, able to speak in complete sentences, no audible wheezes and not labored Auscultation: clear to auscultation bilaterally Cardio: Rate: regular rate Rhythm: regular rhythm Peripheral pulses: Peripheral pulses 2+ throughout (Radial pulses bilaterally) GI: Inspection: No distended Palpation (GI): Soft to palpation, not firm, nontender, no guarding and not rigid Skin: General skin exam: elasticity normal Neuro: General: patient oriented x3 Cranial nerves: Yes Equal, round and reactive pupils present and Yes Bilaterally intact EOM present Cognition (Neuro): normal cognition Course Course Course Narrative: This is an RME: Additional HPI, ROS, PE not included below will be deferred to primary provider. RME assessment and note performed by: Fatmata Partida PA-C This is a 81-nqgi-mfo-male, with a hx of STEMI followed by Dr. Cunha with 2 cardiac stents, who presents to the ER with complaints of heaviness in BL arms, numbness, and awoke today with severe chest pain. He took a dose of carvediolol at 7am in hopes that this would help with pain but this caused him to become drowsy and he fell back asleep. He typically takes a dose of carvediolol at noon and at bedtime. Chest heaviness is constant, had pinching in his chest. Plan: labs, ekg, cxr, further ER eval needed. Medical Decision Making Medical Decision Making [facility] Narrative: 59-year-old male past medical history as above presents for evaluation of chest pressure. It has a history of coronary artery disease, EKG performed in triage shows a normal sinus rhythm with a rate of 74 beats per minute. No ST segment elevation RI. plan for labs, chest x-ray. The patient is not tachycardic or hypoxic, less likely PE. Lungs are clear to auscultation, less likely pneumonia. His pain may be related to anxiety, chest wall strain, costochondritis, GERD. Less likely vascular issue as the patient's blood pressure is stable and not elevated, pulses are equal bilaterally Differential Diagnosis Differential Diagnoses: The differential diagnosis associated with the presentation includes As above Admission/Observation Consideration of admission/observation: Escalation of care including admission/observation considered Lab Data [facility] Lab Attestation statement: I reviewed the patient's lab results. No leukocytosis or significant anemia. Normal platelet count. No electrolyte abnormalities warranting intervention, troponin within normal limits. Random glucose elevated to 169 but no evidence of DKA. 11/05/24 15:26 11/05/24 15:26 Labs: Lab Results 11/05/24 11/05/24 Range/Units 15:26 18:37 WBC 6.5 (4.8-10.8) X10*3/uL RBC 4.99 (4.60-5.80) X10*6/uL Hgb 14.6 (14.0-18.0) g/dl Hct 41.5 L (42.0-52.0) % MCV 83.2 (80.0-98.0) fL MCH 29.3 (27.0-33.0) pg MCHC 35.2 (31.0-36.0) g/dl RDW 12.3 (11.0-16.0) % Plt Count 208 (160-400) X10*3/uL MPV 10.7 (9.4-12.4) fL Immature Gran % (Auto) 0.3 (0.0-0.4) % Neut % (Auto) 72.1 (45-73) % Lymph % (Auto) 18.8 L (20-40) % Brule % (Auto) 5.7 (2-11) % Eos % (Auto) 2.3 (0-4) % Baso % (Auto) 0.8 (0-2) % Lymph # (Auto) 1.2 (1.2-4.9) X10*3/uL Brule # (Auto) 0.4 (0.1-1.2) X10*3/uL Eos # (Auto) 0.2 (0.0-0.4) X10*3/uL Baso # (Auto) 0.1 (0.0-0.2) X10*3/uL Abs Immat Gran (auto) 0.02 (0.00-0.03) X10*3/uL Absolute Neuts (auto) 4.7 (2.0-8.3) x10*3/uL Absolute Nucleated RBC 0.000 (0.0-0.012) X10*3/uL Nucleated RBC % (auto) 0.0 (0.0-0.2) /100WBC Sodium 135 (135-145) mmol/L Potassium 4.1 (3.3-5.1) mmol/L Chloride 101 (96-108) mmol/L Carbon Dioxide 25 (22-29) mmol/L Anion Gap 13 (12-20) BUN 16 (9-16) mg/dL Creatinine 0.84 (0.5-1.4) mg/dL Estim Creat Clear Calc 103.1 Estimated GFR > 60 Random Glucose 169 H (60-115) mg/dL Calcium 9.6 (8.4-10.2) mg/dL Magnesium 2.0 (1.6-2.6) mg/dL Total Bilirubin 1.0 (0.0-1.0) mg/dL Direct Bilirubin 0.3 (0.0-0.5) mg/dL AST 24 (5-37) U/L ALT 36 (0-40) U/L Alkaline Phosphatase 80 (39-117) U/L Troponin I High Sens 3.2 D 4.3 (<3.5-35.0) ng/L B-Natriuretic Peptide 29 (<100) pg/mL Total Protein 7.0 (6.5-8.0) g/dL Albumin 4.8 (3.5-5.0) g/dL Lipase 30 (8-78) U/L Independent Interpretation I performed an independent interpretation of an: EKG (Sinus rhythm with a rate of [address] segment elevation RI. Nondiagnostic EKG) Radiology Impression Discussion of test interpretation with radiology: I have reviewed the radiologist's reading. Radiologist Impression: FINDINGS: Heart and mediastinal contours are within normal limits. Lungs are clear. There is no pleural effusion. XR/XR chest 2V IMPRESSION: No acute disease. Electronically signed by: Francisco Ames MD 11/05/2024 04:39 PM EDT Discharge Plan Discharge Clinical Impression: Chest pain Patient Disposition: Home, Self-Care Instructions: Chest Pain (ED) Additional Instructions: Your workup in the ER today was reassuring. This includes your EKG, chest x-ray and blood work. You may use ibuprofen and/or Tylenol for your pain. 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 Return for new or worsening symptoms Prescriptions: No Action aspirin [Adult Aspirin Regimen] 81 mg tablet,delayed release (DR/EC) 81 mg PO DAILY Qty: 90 3RF clopidogrel 75 mg tablet 75 mg PO DAILY Qty: 90 3RF carvedilol 3.125 mg tablet 3.125 mg PO BID Qty: 180 3RF atorvastatin 80 mg tablet 80 mg PO BEDTIME Qty: 90 3RF Print Language: Polish
[2024-11-05 15:39] VITALS: BP 122/80; PULSE 79; RESP 20; O2SAT 97
[2024-11-05 15:43] LABS: MANUAL DIFF FLAG NO
[2024-11-05 15:44] LABS: Basophils Absolute Auto 0.1 X10*3/uL (0.0-0.2); Basophils Percent Auto 0.8 % (0-2); Eosinophils Absolute Auto 0.2 X10*3/uL (0.0-0.4); Eosinophils Percent Auto 2.3 % (0-4); Hematocrit 41.5 % (42.0-52.0); Hemoglobin 14.6 g/dl (14.0-18.0); Imm Gran Abs Auto 0.02 X10*3/uL (0.00-0.03); Imm Gran Pct Auto 0.3 % (0.0-0.4); Lymphocytes Absolute Auto 1.2 X10*3/uL (1.2-4.9); Lymphocytes Percent Auto 18.8 % (20-40); Mean Corpuscular HGB Conc 35.2 g/dl (31.0-36.0); Mean Corpuscular Hemoglobin 29.3 pg (27.0-33.0); Mean Corpuscular Volume 83.2 fL (80.0-98.0); Mean Platelet Volume 10.7 fL (9.4-12.4); Monocytes Absolute Auto 0.4 X10*3/uL (0.1-1.2); Monocytes Percent Auto 5.7 % (2-11); Neutrophils Absolute Auto 4.7 x10*3/uL (2.0-8.3); Neutrophils Percent Auto 72.1 % (45-73); Platelet Count 208 X10*3/uL (160-400); Red Blood Count 4.99 X10*6/uL (4.60-5.80); Red Cell Distribution Width 12.3 % (11.0-16.0); White Blood Count 6.5 X10*3/uL (4.8-10.8)
[2024-11-05 15:58] LABS: Alanine Aminotransferase 36 U/L (0-40); Albumin Level 4.8 g/dL (3.5-5.0); Alkaline Phosphatase 80 U/L (39-117); Anion Gap 13 (12-20); Aspartate Amino Transferase 24 U/L (5-37); Bilirubin Direct 0.3 mg/dL (0.0-0.5); Blood Urea Nitrogen 16 mg/dL (9-16); Calcium 9.6 mg/dL (8.4-10.2); Carbon Dioxide 25 mmol/L (22-29); Chloride 101 mmol/L (96-108); Creatinine Clr Calc Pharmacy 103.1; Estimated Glomerular Filt Rate > 60; Glucose Random 169 mg/dL (60-115); Lipase 30 U/L (8-78); Potassium 4.1 mmol/L (3.3-5.1); Sodium 135 mmol/L (135-145)
[2024-11-05 16:03] LABS: B Type Natriuretic Peptide 29 pg/mL (<100)
[2024-11-05 16:05] LABS: Troponin-I High Sensitivity 3.2 ng/L (<3.5-35.0)
[2024-11-05 16:09] VITALS: BP 124/77; PULSE 75; RESP 18; O2SAT 97
[2024-11-05 18:23] VITALS: BP 136/79; PULSE 73; RESP 19; TEMP 36.7; O2SAT 95
[2024-11-05 19:00] LABS: Troponin-I High Sensitivity 4.3 ng/L (<3.5-35.0)
--- NOTE | 2024-11-05 19:36 | PC.NURSE ---
this rn assumed care of pt, pt resting n stretcher no acute distress noted
--- OUTSIDE RECORDS SUMMARY | 2024-11-05 19:36 | XMS_ITS | Clinical Summary ---
Author Organization [address] Address [address] [place] [address] Phone Care Team Providers Care Bed Rubber Name Role Phone Fadi Jaramillo MD Primary Care Provider [phone] Allergies Active Allergy Reactions Criticality Noted Date Comments Methocarbamol 04/09/2007 Difficulty breathing Severe lethargy Medications blood glucose control high,low (FreeStyle Control) solution To check sugars once daily E11. 4 Active multivit-minerals /FA/lycopene (ONE-A-DAY MEN'S 50 PLUS ORAL) Take by mouth daily. Active blood-glucose meter kit 1 Kit by Does not apply route See Admin Instructions. . 4 Active FREESTYLE LANCETS MISC To check sugars once daily . 4 Active blood sugar diagnostic (FreeStyle Lite Strips) test strip 1 Strip by In Vitro route daily. To check sugars once daily . 4 Active aspirin 81 mg EC tablet Take 1 Tablet by mouth daily. Active lidocaine 1.8 % adhesive patch,medicatedIn dications:Acute exacerbation of chronic low back pain Apply topically 1 (one) time each day. 15 patch 5 Active clopidogreL (PLAVIX) 75 mg tablet Take 1 tablet (75 mg total) by mouth 1 (one) time each day. 5 Active carvediloL (COREG) 3.125 mg tablet Take 1 tablet (3.125 mg total) by mouth 2 (two) times a day. 5 Active atorvastatin (LIPITOR) 80 mg tablet Take 1 tablet (80 mg total) by mouth. at bedtime. Active acetaminophen (TYLENOL) 500 mg tablet Take 1 tablet (500 mg total) by mouth every 6 (six) hours if needed for mild pain. Taking 2 pills Active Active Problems Problem Noted Date Diagnosed Date Acute exacerbation of chronic low back pain 09/11 Spondylosis of lumbosacral region 10/07/2024 Assessment & Plan (10/08/2024 4:02 PM EDT): Pt describes years of LBP, states about 3-4 years ago he was told he has arthritis in his low back . Recently he has had 3 flareups (after some yardwork) of severe back pain, he describes burning, sharp impulses, stabbing pain in transverse low back, between his hips and sacrum/talbone. The pain also radiates to the posterior thighs and lateral thighs. He also notes pain in the knees, behind patella. He feels there are times his knee will give out when he takes a step. Some tingling to lateral three toes. He rates the pain 8-9/10. He rates sitting/standing tolerance 15-20 minutes. His pain is worse if he is on his knees, bent over. LE sxs are equal b/l. He has tried Tylenol, Lidocaine patches without improvement. He is schedule for cortisone injection end of this month (), [address] He is currently still in Cardiac Rehab, had widowmaker 01/24/23 and a stroke 02/17/23, is on Plavix, ASA 81mg and Lipitor. He has an elliptical, treadmill and stair climber at home, on a good day will use them 10 mins each for 30 min exercise. He sleeps on his back, could not specifically say if his SI region pain is worse sleeping on his side, doesn't think so. He had L/S MRI 09/24/24 at [facility] that shows overall mild degenerative changes, L4-5 and L5-S1 with moderate R>L foraminal stenosis at L4-5, mild-mod b/l NFN L5-S1. Mr. Jaramillo has low back pain, SI joint tenderness, overall mild degenerative findings on L/S MRI, there is some foraminal stenosis (particularly right L4-5) but I do not think its severe as per radiology report. I will review MRI with Dr. Zamarripa to see if she agrees or has any surgical recommendations, but it seems some of his current pain is coming from his SI joints. We will see how he does after the cortisone injections. I gave him rx to try PT for his back and SI joint pain, core strengthening, massage, TENS. All questions answered. ADDENDUM 10/08/2024: I reviewed patient's lumbar spine MRI with Dr. Zamarripa earlier today, she sees mild degenerative changes, is not recommending any surgical intervention for the lumbar spine. Thyroid nodule 05/03/2023 Controlled type 2 diabetes m ellitus without complication, without long-term current use of insulin ([facility] V24, [facility] V28) 04/14/2021 Obesity (BMI 30.0-34.9) 07/01/2018 Elevated glucose 01/31/2018 Mixed hyperlipidemia 07/15/2014 Thoracic disc herniation 04/25/2007 Overview (04/30/2024): 2006 Encounters Date Type Department Care Team Description 10/19/2024 8:00 AM EDT Office Visit Adult Medicine [address] [phone] Fadi Jaramillo MD Spondylosis of lumbosacral region, unspecified spinal osteoarthritis complication status (Primary Dx); Uncontrolled type 2 diabetes mellitus with hyperglycemia ([facility] V24, [facility] V28); Other chronic pain; Pure hypercholesterolemia 10/16/2024 1:15 PM EDT - 10/16/2024 11:59 PM EDT Hospital Encounter [address] [phone] Bilateral primary osteoarthritis of knee Discharge Disposition: Home or Self Care 10/09/2024 Telephone Neurosurgery [facility] [address] [place] [address] Divya Mi MA PT CALL (Pt called to provide the following: A) Consult for SI Joint injection, 10/15/24 ( Family Physiatry ) B) Chiropractic Appt 10/19/24 ( ? [facility] chiropractic ? ) and C) would like an MRI of Hips and SI Joint at [facility]. Best phone # [phone] Thank you ) 10/06/2024 10:30 AM EDT Consult [address] [phone] Lenore Ramos PA Other osteoarthritis of spine, lumbosacral region (Primary Dx); Acute exacerbation of chronic low back pain 10/06/[address] [phone] Lenore Ramos PA Advice Only (Patient call) 09/28/2024 Telephone Adult Medicine [address] [phone] Fadi Jaramillo MD Back Pain 09/24/2024 5:28 PM EDT - 09/24/2024 11:59 PM EDT Hospital Encounter Radiology Department - [address] [phone] Acute exacerbation of chronic low back pain Discharge Disposition: Home or Self Care 09/24/2024 Nurse Triage Adult Medicine [address] [phone] Fadi Jaramillo MD Back Pain; Tingling 09/23/2024 Telephone Adult Medicine [address] [phone] Helen Stokes MA MRI ORDER 09/18/2024 Telephone Adult Medicine [address] [phone] Fadi Jaramillo MD prior auth 09/17/2024 2:40 PM EDT - 09/17/2024 11:59 PM EDT Hospital Encounter XRAY [address] [phone] Acute exacerbation of chronic low back pain Discharge Disposition: Home or Self Care 09/17/2024 2:00 PM EDT Office Visit Adult Medicine [address] [phone] Kimberly Stevens PA Acute exacerbation of chronic low back pain (Primary Dx); History of testicular cancer; Mixed hyperlipidemia; Controlled type 2 diabetes mellitus without complication, without long-term current use of insulin ([facility] V24, [facility] V28); Screening PSA (prostate specific antigen) 09/16/2024 Telephone Adult Medicine [address] [phone] Fadi Jaramillo MD Back Pain from Last 3 Months Immunizations Name Administration Dates Next Due Pfizer SARS-CoV-2 COVID-19, mRNA, LNP-S, preservative free 10/08/2020,09/18/2020 Tdap Tetanus diptheria acell ular pertussis (Boostrix; Adacel) 7yo and older 04/09/2007 Surgical History Surgery Date Site/Laterality Comments OTHER SURGICAL HISTORY REMOVAL OF TESTIS LESION; COMMENT: malignant neoplasm OTHER SURGICAL HISTORY 01/11/2023 - 02/09/2023 two heart stents Medical History Medical History Date Comments Chest pain, unspecified 08/30/2005 Pain in joint, site unspecified 08/30/2005 Displacement of thoracic intervertebral disc 2006 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/30/2005 2000: surgery Stroke ([facility] V24, [facility] V28) Heart attack ([facility] V24, [facility] V28) Family History Medical History Relation Name Comments Heart attack Father CABG, bypass ti mes 2- 60s Arthritis Maternal Grandmother Arthritis Mother Breast cancer Mother - mets 58 Relation Name Status Comments Father Maternal Grandmother Mother Social History Tobacco Use Types Packs/Day Years Used Date Smoking Tobacco: Never Smokeless Tobacco: Never Tobacco Cessation:Counseling Given: Not Answered Alcohol Use Standard Drinks/Week Comments Never 0 (1 standard drink = 0.6 oz pur e alcohol) Sex and Gender Information Value Date Recorded Sex Assigned at Not on file Legal Sex Male 2:32 PM EST Gender Identity Not on file Sexual Orientation Not on file Obstetrics History Last Filed Vital Signs Vital Sign Reading Time Taken Comments Blood Pressure 120/80 10/19/2024 7:55 AM EDT Pulse 70 10/19/2024 7:55 AM EDT Temperature 36.5 C (97.7 F) 10/19/2024 7:55 AM EDT Respiratory Rate 16 10/19/2024 7:55 AM EDT Oxygen Saturation 95% 09/17/2024 1:51 PM EDT Inhaled Oxygen Concentration - - Weight 87.5 kg (193 lb) 10/19/2024 7:55 AM EDT Height 172.7 cm (5' 7.99 ) 10/06/2024 10:36 AM E DT Body Mass Index 29.35 10/06/2024 10:36 AM EDT Plan of Treatment Upcoming Encounters Date Type Department Care Team (Late st Contact Info) Description 02/18/2025 8:00 AM EDT Office Visit Adult Medicine [address] [phone] Fadi Jaramillo MD [address] [place] [phone] Health Maintenance Due Date Last Done Comments Diabetes: Annual Foot Exam 1976 Diabetes: Annual Retina Eye Exam 1976 Hepatitis B Vaccines (1 of 3 - 19+ 3-dose series) 1985 Pneumococcal Vaccine: 50+ Years (1 of 2 - PCV) 1985 Pneumococcal Vaccine: Pediatrics (0 to 5 Years) and At-Risk Patients (6 to 64 Years) (1 of 2 - PCV) 1985 Zoster Vaccines (1 of 2) 2016 DTaP,Tdap,and Td Vaccines (2 - Td or Tdap) 04/09/2017 04/09/2007 Colorectal Cancer Screening: Colonoscopy 04/11/2022 Depression Screening 04/11/2022 HIV Screening 04/11/2022 Social Influencers of Health Screening 04/11/2022 COVID-19 Vaccine ( - 2023-2 5 season) 2024 10/08/2020, 09/18/2020 Diabetes: Annual Urine Albumin-Creatinine Ratio (uACR) 12/11/2024 12/12/2023 Influenza Vaccine (Season Ended) 2025 Diabetes: Blood Sugar Contro l Test (HGBA1C) 03/21/2025 09/18/2024, 12/12/2023, 12/12/2023 Diabetes: Annual GFR (Glomerular Filtration Rate) 09/18/2025 09/18/2024, 03/04/2023 Cholesterol Screening (Lipid Panel) 09/18/2029 09/18/2024, 12/14/2022 Hepatitis C Screening Completed 04/01/2021 HIB Vaccines Aged Out No longer eligi ble based on patient's age to complete this topic HPV Vaccines Aged Out No longer eligi ble based on patient's age to complete this topic Hepatitis A Vaccines Aged Out No long er eligible based on patient's age to complete this topic IPV Vaccines Aged Out No longer eligi ble based on patient's age to complete this topic MMR Vaccines Aged Out No longer eligi ble based on patient's age to complete this topic Meningococcal ACWY Vaccine Aged Out N o longer eligible based on patient's age to complete this topic Meningococcal B Vaccine Aged Out No l onger eligible based on patient's age to complete this topic RSV Immunization Patients Under 20 months Aged Out No longer eligible b ased on patient's age to complete this topic Varicella Vaccines Aged Out No longer eligible based on patient's age to complete this topic Procedures Procedure Name Priority Date/Time Associated Diagnosis Comments XR KNEE 4+ VIEWS BILAT Routine 10/16/2024 1:41 PM EDT Bilateral primary osteoarthritis of knee MR LUMBAR SPINE WO CONTRAST Routine 09/24/2024 6:26 PM EDT Acute exacerbation of chronic low back pain HCG, TUMOR MARKER Routine 09/18/2024 8:1 1 AM EDT History of testicular cancer BASIC METABOLIC PANEL Routine 09/18/2024 8:11 AM EDT Controlled type 2 diabetes mellitus without complication, without long-term current use of insulin (CMS/HCC V24, CMS/[facility] V28) LIPID PANEL WITH REFLEX TO DIRECT LDL Routine 09/18/2024 8:11 AM EDT Controlled type 2 diabetes mellitus without complication, without long-term current use of insulin (CMS/HCC V24, CMS/HCC V28) HEMOGLOBIN A1C Routine 09/18/2024 8:11 AM EDT Controlled type 2 diabetes mellitus without complication, without long-term current use of insulin ([facility] V24, [facility] V28) PROSTATE SPECIFIC ANTIGEN SCREEN Routine 09/18/2024 8:11 AM EDT Screening PSA (prostate specific antigen) XR LUMBAR SPINE 4+ VIEWS Routine 09/17/2024 3:02 PM EDT Acute exacerbation of chronic low back pain HM URINE ALBUMIN CREATININE RATIO Routine 12/12/2023 HM HEPATITIS C SCREENING Routine 04/01/2021 from Last 3 Months or Most Recently Relevant to Health Maintenance Results * XR Knee 4+ Views bilat (10/16/2024 1:41 PM EDT) Anatomical Region Laterality Modality Lower Extremities, Knee Bilateral [facility] 10/16/2024 3:12 PM EDT Impressions 10/16/2024 3:14 PM EDT No acute fracture or dislocation. -------- FINAL REPORT -------- Dictated By: Adriana Rothman Dictated Date: 10/16/2024 15:12 ET Assigned Physician: Adriana Rothman Reviewed and Electronically Signed By: Adriana Rothman Signed Date: 10/16/2024 15:14 ET Workstation ID: [id number] Transcribed By: Self Edit Transcribed Date: 10/16/2024 15:12 ET Narrative 10/16/2024 3:14 PM EDT XR KNEE 4+ VIEWS BILAT Reason: bilateral Comparison: None FINDINGS: No fracture. Mild lateral tilting of the posterior patella. Joint spaces are preserved. No suprapatellar joint effusion. Procedure Note Adriana Rothman MD - 10/16/2024 XR KNEE 4+ VIEWS BILAT Reason: bilateral Comparison: None FINDINGS: No fracture. Mild lateral tilting of the posterior patella. Joint spacesare preserved. No suprapatellar joint effusion. IMPRESSION: No acute fracture or dislocation. -------- FINAL REPORT -------- Dictated By: Adriana Rothman Dictated Date: 10/16/2024 15:12 ET Assigned Physician: Adriana Rothman Reviewed and Electronically Signed By: Adriana Rothman Signed Date: 10/16/2024 15:14 ET Workstation ID: [id number] Transcribed By: Self Edit Transcribed Date: 10/16/2024 15:12 ET Aden MENDOZA IMG XR PROCEDURES Final Result * MR Lumbar Spine wo Contrast (09/24/2024 6:26 PM EDT) Anatomical Region Laterality Modality L-spine, Spine Magnetic Resonan ce 09/25/2024 2:58 AM EDT Impressions 09/25/2024 3:25 AM EDT 1. Multilevel lumbar spondylosis, as above, most prominent at L5-S1; corresponding to patient's pain 2. Acute Schmorl's node at L3 -------- FINAL REPORT -------- Dictated By: Mee John Dictated Date: 09/25/2024 02:58 ET Assigned Physician: Mee John Reviewed and Electronically Signed By: Mee John Signed Date: 09/25/2024 03:25 ET Workstation ID: [id number] Transcribed By: Self Edit Transcribed Date: 09/25/2024 02:58 ET Narrative 09/25/2024 3:25 AM EDT INDICATION: Low back pain, progressive neurologic deficit acute exacerbation of low back pain COMPARISON: Radiographs dated September 2024 TECHNIQUE: Multiplanar, multisequence MRI was performed of the lumbar spine without IV contrast. FINDINGS: Study assumes 5 lumbar type vertebral bodies. Straightening of the lumbar spine. Minimal grade 1 anterolisthesis of L4 on L5. Mild straightening of the lumbar lordosis. Conus terminates at T12-L1. Visualized cord signal is unremarkable. Multilevel disc desiccation. Schmorl's node involving the superior endplate of L3 with surrounding hyperintense signal on STIR keeping with bone marrow edema. Specific findings are seen at the following levels: L1-L2::No significant spinal canal stenosis or neural foraminal narrowing. L2-L3::Mild diffuse disc bulge with mild facet arthropathy which results in mild left-sided neural foraminal narrowing. No significant spinal canal stenosis. L3-L4:Diffuse disc bulge with facet arthropathy (eccentric to the right) which results in mild right-sided neural foraminal narrowing. No significant spinal stenosis. L4-L5:Uncovering of the disc with facet arthropathy which results in moderate to severe right and mild left neural foraminal narrowing. No significant spinal canal stenosis. Possible superimposed annular fissure. L5-S1:Disc bulge with facet arthropathy which results in severe bilateral neural foraminal narrowing with touching of the exiting right L5 nerve root. There is a marker overlying this level corresponding to patient's site of pain. Miscellaneous: Visualized SI joints, paraspinal muscles and retroperitoneum are unremarkable. Procedure Note Mee John MD - 09/25/2024 INDICATION: Low back pain, progressive neurologic deficit acute exacerbation of low back pain COMPARISON: Radiographs dated September 2024 TECHNIQUE: Multiplanar, multisequence MRI was performed of the lumbarspine without IV contrast. FINDINGS: Study assumes 5 lumbar type vertebral bodies. Straightening of the lumbarspine. Minimal grade 1 anterolisthesis of L4 on L5. Mild straighteningof the lumbar lordosis. Conus terminates at T12-L1. Visualized cordsignal is unremarkable. Multilevel disc desiccation. Schmorl's nodeinvolving the superior endplate of L3 with surrounding hyperintense signalon STIR keeping with bone marrow edema. Specific findings are seen at thefollowing levels: L1-L2::No significant spinal canal stenosis or neural foraminalnarrowing. L2-L3::Mild diffuse disc bulge with mild facet arthropathy which resultsin mild left-sided neural foraminal narrowing. No significant spinalcanal stenosis. L3-L4:Diffuse disc bulge with facet arthropathy (eccentric to the right)which results in mild right-sided neural foraminal narrowing. Nosignificant spinal stenosis. L4-L5:Uncovering of the disc with facet arthropathy which results inmoderate to severe right and mild left neural foraminal narrowing. Nosignificant spinal canal stenosis. Possible superimposed annularfissure. L5-S1:Disc bulge with facet arthropathy which results in severe bilateralneural foraminal narrowing with touching of the exiting right L5 nerveroot. There is a marker overlying this level corresponding to patient'ssite of pain. Miscellaneous: Visualized SI joints, paraspinal muscles andretroperitoneum are unremarkable. IMPRESSION: 1. Multilevel lumbar spondylosis, as above, most prominent at L5- S1;corresponding to patient's pain 2. Acute Schmorl's node at L3 -------- FINAL REPORT -------- Dictated By: Mee John Dictated Date: 09/25/2024 02:58 ET Assigned Physician: Mee John Reviewed and Electronically Signed By: Mee John Signed Date: 09/25/2024 03:25 ET Workstation ID: [id number] Transcribed By: Self Edit Transcribed Date: 09/25/2024 02:58 ET us Kimberly MENDOZA IMG MRI PROCEDURES Leia l Result * Prostate specific antigen screen (09/18/2024 8:11 AM EDT) PSA 1.52 0.00 - 4.00 ng/mL LAB CHEMISTRY METHOD 09/18/2024 11:[address] [facility] Blood Venous blood specimen / Unknown Venipuncture / Unknown 09/18/2024 8:11 AM EDT 09/18/2024 8:[address] [facility] - 09/18/2024 11:26 AM EDT The Siemens Advia Centaur Chemiluminescent Immunoassay is used. Results obtained with different assay methods or kits cannot be used interchangeably. Results cannot be interpreted as absolute evidence of the presence or absence of malignant disease. us Kimberly MENDOZA LAB BLOOD ORDERABLES Fi nal Result [facility] [address] [place] [address], [place] [phone] * (ABNORMAL) Lipid panel with reflex to direct LDL (09/18/2024 8:11 AM EDT) Cholesterol 115 0 - 200 mg/dL LAB CHEMISTRY METHOD 09/18/2024 11:01 AM [facility] Triglycerides 146 0 - 150 mg/dL LAB CHEMISTRY METHOD 09/18/2024 11:01 AM [facility] HDL 37(L) >=40 mg/dL LAB [facility]STR[facility] LDL Calculated 49 0 - 100 mg/dL LAB CHEMISTRY METHOD 09/18/2024 11:01 AM [facility] VLDL Cholesterol Jovon 29.2 mg/dL LAB CHEMISTRY METHOD 09/18/2024 11:01 AM [facility] Non HDL Chol. (LDL+VLDL) 78 <145 mg/dL LAB CHEMISTRY METHOD 09/18/2024 11:01 AM [facility] Chol/HDL Ratio 3.1 0.0 - 4.4 LAB CHEMISTRY METHOD 09/18/2024 11:01 AM [facility] Blood Venous blood specimen / Unknown Venipuncture / Unknown 09/18/2024 8:11 AM EDT 09/18/2024 8:11 AM EDT Kimberly MENDOZA LAB BLOOD ORDERABLES Fi nal Result [facility] [address] [place] [address], * HCG, tumor marker (09/18/2024 8:11 AM EDT) Pathologist [facility] hCG Tumor Marker <1 <1 mIU/mL LAB CHEMISTRY METHOD 09/18/2024 11:01 AM [facility] Blood Venous blood specimen / Unknown Venipuncture / Unknown 09/18/2024 8:11 AM EDT 09/18/2024 8:[address] [facility] - 09/18/2024 11:01 AM EDT The Siemens [place] 1500 Chemiluminescent Immunoassay is used. Results obtained with different assay methods or kits cannot be used interchangeably. Results cannot be interpreted as absolute evidence of the presence or absence of malignant disease. [facility] LAB BLOOD ORDERABLES Fi nal Result Performing Organization Address [facility] de Phone Number [facility] [address] [place] [address], * (ABNORMAL) Hemoglobin A1c (09/18/2024 8:11 AM EDT) Hemoglobin A1C 11.6(H) <6.5 % LAB CHEMISTRY METHOD 09/18/2024 11:[address] [facility] Mean Bld Glu Estim. 286 mg/dL LAB CHEMISTRY METHOD 09/18/2024 11:[address] [facility] Blood Venous blood specimen / Unknown Venipuncture / Unknown 09/18/2024 8:11 AM EDT 09/18/2024 8:11 AM EDT [facility] LAB BLOOD ORDERABLES Fi nal Result Performing Organization Address [facility] de Phone Number [facility] [address] [place] [address], [place] [phone] * (ABNORMAL) Basic metabolic panel (09/18/2024 8:11 AM EDT) Sodium 136 133 - 145 mmol/L LAB CHEMISTRY METHOD 09/18/2024 11:[address] [facility] Potassium 4.6 3.5 - 5.5 mmol/L LAB CHEMISTRY METHOD 09/18/2024 11:[address] [facility] Chloride 103 96 - 110 mmol/L LAB CHEMISTRY METHOD 09/18/2024 11:13 AM [facility] CO2 27 21 - 32 mmol/L LAB CHEMISTRY METHOD 09/18/2024 11:13 AM [facility] Anion Gap 6 3 - 11 LAB CHEMISTRY METHOD 09/18/2024 11:13 AM [facility] Glucose 309(H) 70 - 100 mg/dL LAB CHEMISTRY METHOD 09/18/2024 11:13 AM [facility] Comment:Results verified by repeat testing BUN 23 5 - 25 mg/dL LAB CHEMISTRY METHOD 09/18/2024 11:13 AM [facility] Creatinine 1.19 0.70 - 1.30 mg/dL LAB CHEMISTRY METHOD 09/18/2024 11:13 AM [facility] eGFR 71 >=60 mL/min/1. 73m2 LAB CHEMISTRY METHOD 09/18/2024 11:13 AM [facility] Comment:Calculation based on the Chronic Kidney Disease Epidemiology Collaboration (CKD-EPI) equation refit without adjustment for race. BUN/Creatinine Ratio 19.3 LAB CHEMISTRY METHOD 09/18/2024 11:13 AM [facility] Calcium 9.6 8.5 - 10.5 mg/dL LAB CHEMISTRY METHOD 09/18/2024 11:13 AM [facility] Blood Venous blood specimen / Unknown Venipuncture / Unknown 09/18/2024 8:11 AM EDT 09/18/2024 8:11 AM EDT us Kimberly MENDOZA LAB BLOOD ORDERABLES Fi nal Result [facility] [address] [place] [address], * XR Lumbar Spine 4+ Views (09/17/2024 3:02 PM EDT) Anatomical Region Laterality Modality Spine, L-spine Radiographic Amy ging 09/17/2024 9:47 PM EDT Narrative 09/17/2024 9:49 PM EDT Lumbosacral spine, 4 views. History exacerbation of the chronic back pain. Comparison is prior study from 07/10/2022. There are discogenic osteophytes more prominent at L2-3 and L3-4 levels. There is mild retrolisthesis of L5 over S1 and mild narrowing of the disc spaces at L5-S1 level. There is mild hypertrophy of the facet joints at L5-S1 level. No fractures, dislocations or destructive lesions. CONCLUSIONS: Degenerative changes as detailed. Slight interval progression since previous examination. -------- FINAL REPORT -------- Dictated By: Aminata Hill Dictated Date: 09/17/2024 21:47 ET Assigned Physician: Aminata Hill Reviewed and Electronically Signed By: Aminata Hill Signed Date: 09/17/2024 21:49 ET Workstation ID: [id number] Transcribed By: Self Edit Transcribed Date: 09/17/2024 21:47 ET Procedure Note Aminata Hill MD - 09/17/2024 Lumbosacral spine, 4 views. History exacerbation of the chronic back pain. Comparison is prior study from 07/10/2022. There are discogenic osteophytes more prominent at L2-3 and L3-4 levels.There is mild retrolisthesis of L5 over S1 and mild narrowing of the discspaces at L5-S1 level. There is mild hypertrophy of the facet joints atL5-S1 level. No fractures, dislocations or destructive lesions. CONCLUSIONS: Degenerative changes as detailed. Slight interval progressionsince previous examination. -------- FINAL REPORT -------- Dictated By: Aminata Hill Dictated Date: 09/17/2024 21:47 ET Assigned Physician: Aminata Hill Reviewed and Electronically Signed By: Aminata Hill Signed Date: 09/17/2024 21:49 ET Workstation ID: [id number] Transcribed By: Self Edit Transcribed Date: 09/17/2024 21:47 ET Kimberly MENDOZA IMG XR PROCEDURES Final Result * Urine Albumin Creatinine Ratio (12/12/2023) Urine Albumin Creatinine Ratio Abstracted Historical Provider HEALTH MAINTENANCE Final Result * Hepatitis C Screening (04/01/2021) Hepatitis C Screening Abstracted Historical Provider HEALTH MAINTENANCE Final Result from Last 3 Months or Most Recently Relevant to Health Maintenance [place] [address] [place] [id number] [employer] Care Teams Bed Rubber Relationship Specialty Start Date End Date Fadi Jaramillo MD [address] [place] [id number] PCP - General Internal Medicine 08/19/20
[2024-11-05 20:04] VITALS: BP 118/79; PULSE 68; RESP 12; TEMP 36.6; O2SAT 97
== END 2024-11-05 20:06 | disposition home or self-care (01) ==
PROVIDERS: Physician Assistant; Physician Assistant Medical; Emergency Provider Emergency Medicine
DX: R07.89 Other chest pain (principal); R20.0 Anesthesia of skin; R06.02 Shortness of breath; Z79.899 Other long term (current) drug therapy
CPT/HCPCS: 36415; 71046; 80048; 80076; 83690; 83735; 83880; 84484; 85025; 93005; 99283; 99285

== ENCOUNTER → 2024-11-05 14:31 | Outpatient (BNV) | payer OTHER, SELFPAY | PROVIDERS: Emergency Provider Emergency Medicine; Visit Provider Internal Medicine | DX: R07.9 Chest pain, unspecified (principal) | CPT/HCPCS: 93010 ==

== ENCOUNTER → 2024-11-05 16:14 | Outpatient (BNV) | payer OTHER, SELFPAY | PROVIDERS: Emergency Provider Emergency Medicine; Visit Provider Radiology Diagnostic Radiology | DX: R07.9 Chest pain, unspecified (principal) | CPT/HCPCS: 71046 ==

== ENCOUNTER 2024-12-28 13:09 | Outpatient (AMB) | payer OTHER, SELFPAY ==
--- NOTE | 2024-12-28 13:11 | MHC.OFFVIS ---
Vital Signs 12/28/24 13:16 Height 5 ft 8 in Weight 189 lb 2.506 oz BMI 28.8 BP 110/72 Blood Pressure Location Lt brachial Position Sitting Pulse 78 Pulse Source Pulse Oximeter Intake Visit Reasons: fu req by pt for blood pressure Knockdown Worker Required: No Accompanied by: Self / Same As Patient Allergies perflutren (From [facility]) Adverse Reaction (Verified 11/05/24 15:14) Back Pain Medication List - Last Reconciled 12/28/24 by Sumanth Cunha MD aspirin (Adult Aspirin Regimen) 81 mg PO DAILY atorvastatin 80 mg PO BEDTIME carvedilol 3.125 mg PO BID clopidogrel 75 mg PO DAILY HPI Comments Details: Pleasant 59 year gentleman who is here for follow-up. He was seen and [facility] when he presented with anterior ST-elevation TN. He had a occluded mid LAD which was treated with drug-eluting stent. He had approximately 80% mid left circumflex stenosis. Echocardiography has shown EF of 35-40%. He is denying any exertional symptoms on follow-up. No chest pains or shortness of breath. No bleeding issues. Taking medications regularly. He has been dieting and exercising regularly and has lost 6 lb in the last week. 04/17/2023: He returns for follow-up. He was taken for circumflex PCI. Post PCI he had significant symptoms including dizziness lightheadedness and chest pains. He had been to the emergency department if you time. He was told that he has mild TIA also. During 1 of the admissions his losartan was discontinued and since then he has improved back to normal. It appears he has symptoms are related mostly to orthostasis and low blood pressure. He is exercising and feeling good. His ejection fraction on repeat echocardiogram done in [facility] in February was 55-60%. I have reassured him currently. He is taking medication regularly. We have decided to continue the current medications and make no changes currently. : he is here for follow-up. Previously was doing fine but today he has multiple complaints. He said he had a headache recently which was on the back of his head we stayed for 2 days. He also has been significantly forgetful and can not concentrate at work like before. He has been dizzy at times. Noticed that his A1c has gone up because he did not exercise for few months. He was previously taken off the antihypertensives because of dizziness and low blood pressure. He has also stopped the carvedilol. His blood pressure is normal currently. He also has been needle like sensation in the left side of his chest. he also has been experiencing bilateral forearm heaviness which happens randomly and does not happen with activity. A lot of different complaints. He is due to see endocrinology soon. 02/26/24: He returns for follow-up. He has been experiencing some shortness of breath with activities. He also feels weak when he is walking. He has noticed his blood pressure to be elevated at home. In the office currently his blood pressure is elevated. He previously was on antihypertensive medications but he was getting low blood pressures and was quite symptomatic from that and during an admission at [facility] he was taken off the antihypertensive medications. He is denying palpitations but EKGs showing some PVCs. 04/08/2024: He is here for follow-up. He is feeling great. Blood pressure is well controlled. He is taking carvedilol 3.125 mg twice a day. No palpitations or PVCs. No chest discomfort. 08/26/24: Here for follow-up. Under stress because he has lost his job recently. He is actively looking for job. He is concerned that he has no insurance and we will not be able to afford his medications. I have advised him to check with the [employer] program. 12/28/24: He is here for follow-up. He said he had significant hyperglycemia and he has changed his diet significantly and sugars have improved. He has not tolerated metformin in the stopped using it. We also is taking carvedilol once a day. He is asking whether he can stopped atorvastatin because he was getting some confusion and memory loss. [facility] Medical History STEMI (ST elevation myocardial infarction) Surgical History Hx of cardiac cath Family History Father CAD (coronary artery disease) Mother Cancer Social History Patient Tobacco Use Status: Never used Tobacco Review of Systems Const Denies chills, Denies fatigue, Denies fever(s), Denies frequent falls, Denies weakness, Denies weight gain and Denies weight loss ENT Denies dizziness Card Denies chest pain, Denies leg edema, Denies lightheadedness, Denies palpitations, Denies dyspnea and Denies dyspnea on exertion Resp Denies cough, Denies dyspnea and Denies dyspnea on exertion GI Denies hematochezia Musc Denies abnormal gait, Denies muscle weakness, Denies numbness, Denies radiating pain into limb and Denies tingling Neuro Denies abnormal gait, Denies dizziness, Denies frequent falls, Denies numbness, Denies tingling and Denies weakness Endo Denies fatigue and Denies palpitations Physical Exam Vital Signs: Last Vital Signs Pulse 78 12/28/24 13:16 BP 110/72 12/28/24 13:16 BMI result Body Mass Index 28.8 GENERAL APPEARANCE: in no acute distress, pleasant. NECK: no carotid bruit, no jugular venous distention. SKIN: no suspicious lesions, warm and dry. HEART: no murmurs, regular rate and rhythm. LUNGS: clear to auscultation bilaterally. ABDOMEN: soft, nontender. EXTREMITIES: no edema. PERIPHERAL PULSES: equal. NEUROLOGIC: No gross deficits, AAO X 3 Assessment & Plan Assessment & Plan (1) Stable angina: Code(s): I20.8 - Other forms of angina pectoris Category: Medical Plan Pleasant 59 year gentleman who is here for follow-up. He has background history of anterior wall TN for which he had primary PCI done followed by staged PCI of left circumflex artery. He has done well from coronary disease point of view since then. He has no exertional symptoms. He wants to stop as many medications as possible. 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 In terms of atorvastatin, it is lipophilic and can cause some memory problems although this is quite rare. I have advised him to hold the atorvastatin for now and see if his memory improves. If it does improve then I would favor changing him to rosuvastatin. He is taking carvedilol once a day because his blood pressures were as low as 100 at home. I have advised him to stop the carvedilol and monitor his blood pressure and report to us if his blood pressure rises above 130 systolic. Thank you for allowing me to participate in the care of your patient. Please feel free to contact me if you have any questions. Medications: Discontinued aspirin Discontinued Reason: Doctor's Order 81 mg PO DAILY 90 ea 3RF On Hold carvedilol Hold Comment: Doctor's Order 3.125 mg PO BID 180 tabs 3RF R06.09 - Other forms of dyspnea atorvastatin Hold Comment: Doctor's Order 80 mg PO BEDTIME 90 tabs 3RF Coding Level of Care Code Est Pt Level 4 (84485) Diagnoses Stable angina I20.8
[2024-12-28 13:16] VITALS: BP 110/72; PULSE 78; BMI 28.8
--- OUTSIDE RECORDS SUMMARY | 2024-12-28 14:03 | XMS_ITS ---
[facility] Name [facility] Unknown History of Medication Use Medication Directions Dispensed Refills Start Date End Date Stat us aspirin 81 MG EC tablet Take 1 tablet (81 mg total) by mouth daily. 01/26/2023 active atorvastatin (LIPITOR) tablet 80 mg Take 1 tablet (80 mg total) by mouth daily. 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
--- OUTSIDE RECORDS SUMMARY | 2024-12-28 14:03 | XMS_ITS | Clinical Summary ---
Author Organization [facility] Address [address] [id number] Care Team Providers Care Skirt Panel Assembler Name Role Phone Fadi Jaramillo MD Primary Care Provider [phone] Allergies Active Allergy Reactions Criticality Noted Date [...] 82 08/08/2023 4:15 PM EDT Temperature 35.8 C (96.4 F) 08/08/2023 4:15 PM EDT Respiratory Rate 16 04/11/2023 2:13 PM EST [...] season) 2024 10/08/2020, 09/18/2020 Influenza Vaccine (#1) 2025 Pneumococcal Vaccine Aged Out No long er eligible based on patient's age to complete this topic RSV Ped < 20 months Aged Out No longe r eligible based on patient's age to complete this topic Care Teams Skirt Panel Assembler Relationship Specialty Start Date End Date Fadi Jaramillo MD PCP - General Internal Medicine 03/20/23
--- OUTSIDE RECORDS SUMMARY | 2024-12-28 14:03 | XMS_ITS | Clinical Summary ---
Author Organization [address] Address [address] [place] [address] Phone Care Team Providers Care Air Carrier Inspector Name Role Phone Fadi Jaramillo MD Primary Care Provider [phone] Allergies Active Allergy Reactions Criticality Noted Date Comments Methocarbamol High 04/09/2007 Difficulty breathing Severe lethargy Medications multivit-minerals /FA/lycopene (ONE-A-DAY MEN'S 50 PLUS ORAL) Take by mouth daily. Active aspirin 81 mg EC tablet Take [...] for mild pain. Taking 2 pills Active blood sugar diagnostic (FreeStyle Lite Strips) test strip Use to check bs daily 100 each 12 5 026 Active blood-glucose meter kit Use to check bs daily 1 each 5 Active freestyle 28 gauge lancets Check blood sugar 1 times a day or as directed 100 each 5 026 Active metFORMIN XR (GLUCOPHAGE-XR) 500 mg 24 hr tabletIndications :Uncontrolled type 2 diabetes mellitus with hyperglycemia ([facility] V24, [facility] V28) 2 tabs with breakfast and 2 tabs with dinner 360 each 1 5 Active dulaglutide (TRULICITY) 0.75 mg/0.5 mL pen injector injectionIndicati ons:Uncontrolled type 2 diabetes mellitus with hyperglycemia ([facility] V24, [facility] V28) Inject 0.5 mL (0.75 mg total) under the skin every 7 (seven) days. 2 mL 5 Active metFORMIN XR (GLUCOPHAGE-XR) 500 mg 24 hr tablet 1 tab daily twice a day with meals 30 each 5 025 Discontin ued(Reord er) Active Problems Problem Noted Date Diagnosed Date Primary hypertension 11/24/2024 History of stroke 11/24/2024 History of NC (myocardial infarction) 11/24/2024 Acute exacerbation of chronic low back pain [...] cortisone injection end of this month (), [address] He is currently still in [...] so. He had L/S MRI 09/24/24 at [facility] that shows overall mild degenerative changes, L4-5 [...] for the lumbar spine. Thyroid nodule 05/03/2023 Obesity (BMI 30.0-34.9) 07/01/2018 Elevated glucose 01/31/2018 Mixed hyperlipidemia 07/15/2014 Thoracic disc herniation 04/25/2007 Overview (04/30/2024): 2006 Resolved Problems Problem Noted Date Diagnosed Date Resolved Date Controlled type 2 diabetes m neelimaitus without complication, without long-term current use of insulin ([facility] V24, [facility] V28) 04/14/2021 Encounters Date Type Department Care Team Description 12/28/2024 Telephone [facility] [address] [place] [phone] Cassandra Garcia PA Medication Problem 12/18/[address] [phone] Fadi Jaramillo MD Request For Order(s) 12/10/[address] [phone] Fadi Jaramillo MD Referral (Dr Kamila Waller MD - psychiatrist) 12/10/[address] [phone] Cassandra Garcia PA Medication 12/08/2024 1:00 PM EDT Office Visit [address] [phone] Cassandra Garcia PA Uncontrolled type 2 diabetes mellitus with hyperglycemia (CMS/HCC V24, CMS/HCC V28) (Primary Dx); Mixed hyperlipidemia; Primary hypertension 12/08/[address] [phone] Susana Zaidi MA 11/30/[address] [phone] Jessy Turner RN Blood Sugar Problem (High BS) 11/24/2024 1:30 PM EDT Office Visit [address] [phone] Cassandra Garcia PA Type 2 diabetes mellitus with other specified complication, without long-term current use of insulin (CMS/HCC V24, CMS/HCC V28) (Primary Dx); Mixed hyperlipidemia; Primary hypertension 11/23/[address] [phone] Cee Crowley PA Labs Only (Appt 11/24/24) 11/18/2024 3:30 PM EDT Office Visit [address] [phone] Oriana Castillo, TUNNEL MUCKER Chest pain, unspecified type (Primary Dx); Heavy breathing; SOB (shortness of breath) on exertion; Depression, unspecified depression type 11/17/[address] [phone] Fadi Jaramillo MD ED Follow-up 10/19/2024 8:00 AM EDT Office Visit [address] [phone] Fadi Jaramillo MD Spondylosis of lumbosacral region, unspecified spinal osteoarthritis complication status (Primary Dx); Uncontrolled type 2 diabetes mellitus with hyperglycemia (CMS/HCC V24, CMS/HCC V28); Other chronic pain; Pure hypercholesterolemia 10/16/2024 1:15 PM EDT - 10/16/2024 11:59 PM EDT Hospital Encounter [address] [phone] Bilateral primary osteoarthritis of knee Discharge Disposition: Home or Self Care 10/09/[address] [phone] Divya Mi MA PT CALL (Pt called to provide the following: A) Consult for SI Joint injection, 10/15/24 ( Family Physiatry ) B) Chiropractic Appt 10/19/24 ( ? [facility] ? ) and C) would like an MRI of Hips and SI Joint at [facility]. 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 Stroke ([facility] V24, [facility] V28) Heart attack ([facility] V24, [facility] V28) Family History Medical History Relation Name [...] Sign Reading Time Taken Comments Blood Pressure 118/76 12/08/2024 1:03 PM EDT Pulse 94 12/08/2024 1:03 PM EDT Temperature 36.1 C (96.9 F) 12/08/2024 1:03 PM EDT Respiratory Rate 16 11/18/2024 3:06 PM EDT Oxygen Saturation 95% 09/17/2024 1:51 PM EDT Inhaled Oxygen Concentration - - Weight 86.3 kg (190 lb 3.2 oz) 12/08/2024 1:03 P M EDT Height 172.7 cm (5' 8 ) 12/08/2024 1:03 PM EDT Body Mass Index 28.92 12/08/2024 1:03 PM EDT Plan of Treatment Upcoming Encounters Date Type Department Care Team (Late st Contact Info) Description 12/29/2024 1:30 PM EDT Consult Pulmonolgy - [place] [address] [facility] [address] [place] [phone] Essence Atkinson MD [address] [facility] [address] [place] [address] 02/16/2025 3:30 PM EDT Office Visit [facility] [place] [facility] [place] [address] [facility] [address] [place] [phone] Rajeev Fowler MD [address] [facility] [address] [place] [phone] 02/18/2025 8:00 AM EDT Office Visit [facility] - [address] [phone] Fadi Jaramillo MD [address] [place] [phone] 02/24/2025 3:45 PM EDT Office Visit Endocrinology [address] [phone] Cassandra Garcia PA [address] [place] [address] Health Maintenance Due Date Last Done Comments Diabetes: Annual Foot Exam 1976 Hepatitis B Vaccines (1 of 3 - 19+ 3-dose series) 1985 Pneumococcal Vaccine: 50+ Years (1 of 2 - PCV) 1985 Zoster Vaccines (1 of 2) 2016 DTaP,Tdap,and Td Vaccines (2 - Td or Tdap) 04/09/2017 04/09/2007 Colorectal Cancer Screening: Colonoscopy 04/11/2022 HIV Screening 04/11/2022 Social Influencers of Health Screening 04/11/2022 COVID-19 Vaccine ( season) 2024 10/08/2020, 09/18/2020 Depression Screening 05/13/2024 Diabetes: Annual Urine Albumin-Creatinine Ratio (uACR) 12/11/2024 12/12/2023 Influenza Vaccine (#1) 2025 Diabetes: Blood Sugar Control Test (HGBA1C) 06/27/2025 12/25/2024, 09/18/2024, 12/12/2023, Additional history exists Diabetes: Annual Retina Eye Exam 11/25/2025 11/25/2024 Diabetes: Annual GFR (Glomerular Filtration Rate) 12/25/2025 12/25/2024, 09/18/2024, 03/04/2023 Hypertension/CHF/CAD Annual BMP Blood Test 12/25/2025 12/25/2024, 09/18/2024, 03/04/2023 Cholesterol Screening (Lipid Panel) 12/25/2029 12/25/2024, 09/18/2024, 12/14/2022 Hepatitis C Screening Completed 04/01/2021 [...] 20 months Aged Out No longer eligible based on patient's age to complete this topic Varicella Vaccines Aged Out No longer eligible based on patient's age to complete this topic Procedures Procedure Name Priority Date/Time Associated Diagnosis Comments HEMOGLOBIN A1C Routine 12/25/2024 4:00 PM EDT Type 2 diabetes mellitus with other specified complication, without long-term current use of insulin ([facility] V24, [facility] V28) LIPID PANEL WITH REFLEX TO DIRECT LDL Routine 12/25/2024 4:00 PM EDT Primary hypertension Mixed hyperlipidemia COMPREHENSIVE METABOLIC PANEL Routine 12/25/2024 4:00 PM EDT Primary hypertension Mixed hyperlipidemia POC GLUCOSE Routine 12/08/2024 1:06 PM EDT Uncontrolled type 2 diabetes mellitus with hyperglycemia ([facility] V24, [facility] V28) EXTERNAL DIABETIC RETINA EYE EXAM 11/25/2024 POC GLUCOSE Routine 11/24/2024 1:33 PM EDT Type 2 diabetes mellitus with other specified complication, without long-term current use of insulin ([facility] V24, [facility] V28) XR KNEE 4+ VIEWS BILAT Routine 10/16/2024 1:41 PM EDT Bilateral primary osteoarthritis of knee URINE ALBUMIN CREATININE RATIO Routine 12/12/2023 HEPATITIS C SCREENING Routine 04/01/2021 from Last 3 Months or Most Recently Relevant to Health Maintenance Results * Lipid panel with reflex to direct LDL (12/25/2024 4:00 PM EDT) Cholesterol 104 0 - 200 mg/dL LAB CHEMISTRY METHOD 12/25/2024 7:03 PM EDT [facility] Triglycerides 98 0 - 150 mg/dL LAB CHEMISTRY METHOD 12/25/2024 7:03 PM EDT [facility] HDL 48 >=40 mg/dL LAB CHEMISTRY METHOD 12/25/2024 7:03 PM EDT [facility] LDL Calculated 36 0 - 100 mg/dL LAB CHEMISTRY METHOD 12/25/2024 7:03 PM EDT [facility] Comment:Estimated LDL Calcul ated using equation: Total cholesterol - HDL cholesterol - (Triglycerides/5) VLDL Cholesterol Jovon 19.6 mg/dL LAB CHEMISTRY METHOD 12/25/2024 7:03 PM EDT [facility] Non HDL Chol. (LDL+VLDL) 56 <145 mg/dL LAB CHEMISTRY METHOD 12/25/2024 7:03 PM EDT [facility] Chol/HDL Ratio 2.2 0.0 - 4.4 LAB CHEMISTRY METHOD 12/25/2024 7:03 PM EDT [facility] Blood Venous blood specimen / Unknown Venipuncture / Unknown 12/25/2024 4:00 PM EDT 12/25/2024 4:00 PM EDT us Fadi Jaramillo MD LAB BLOOD ORDERABLES Final Resu lt Performing Organization Address [facility]/ZIP Co de Phone Number [facility] [address] [place] [address], [place] [phone] * (ABNORMAL) Hemoglobin A1c (12/25/2024 4:00 PM EDT) Hemoglobin A1C 10.0(H) <6.5 % LAB CHEMISTRY METHOD 12/25/2024 8:59 PM EDT [facility] Mean Bld Glu Estim. 240 mg/dL LAB CHEMISTRY METHOD 12/25/2024 8:59 PM EDT [facility] Blood Venous blood specimen / Unknown Venipuncture / Unknown 12/25/2024 4:00 PM EDT 12/25/2024 4:00 PM EDT us Cassandra MENDOZA LAB BLOOD ORDERABLES Final Result Performing Organization Address [facility]/ZIP Co de Phone Number [facility] [address] [place] [address], [place] [phone] * (ABNORMAL) Comprehensive metabolic panel (12/25/2024 4:00 PM EDT) Sodium 136 133 - 145 mmol/L LAB CHEMISTRY METHOD 12/25/2024 7:03 PM [facility] Potassium 4.2 3.5 - 5.5 mmol/L LAB CHEMISTRY METHOD 12/25/2024 7:03 PM [facility] Chloride 103 96 - 110 mmol/L LAB CHEMISTRY METHOD 12/25/2024 7:03 PM [facility] CO2 29 21 - 32 mmol/L LAB CHEMISTRY METHOD 12/25/2024 7:03 PM [facility] Anion Gap 4 3 - 11 LAB CHEMISTRY METHOD 12/25/2024 7:03 PM [facility] Glucose 108(H) 70 - 100 mg/dL LAB CHEMISTRY METHOD 12/25/2024 7:03 PM [facility] BUN 21 5 - 25 mg/dL LAB CHEMISTRY METHOD 12/25/2024 7:03 PM [facility] Creatinine 1.09 0.70 - 1.30 mg/dL LAB CHEMISTRY METHOD 12/25/2024 7:03 PM [facility] eGFR 79 >=60 mL/min/1. 73m2 LAB CHEMISTRY METHOD 12/25/2024 7:03 PM [facility] Comment:Calculation based on the Chronic Kidney Disease Epidemiology Collaboration (CKD-EPI) equation refit without adjustment for race. BUN/Creatinine Ratio 19.3 LAB CHEMISTRY METHOD 12/25/2024 7:03 PM [facility] Calcium 9.6 8.5 - 10.5 mg/dL LAB CHEMISTRY METHOD 12/25/2024 7:03 PM [facility] AST (SGOT) 18 10 - 42 unit/L LAB CHEMISTRY METHOD 12/25/2024 7:03 PM [facility] ALT (SGPT) 36 10 - 60 unit/L LAB CHEMISTRY METHOD 12/25/2024 7:03 PM [facility] Alkaline Phosphatase 91 42 - 121 unit/L LAB CHEMISTRY METHOD 12/25/2024 7:03 PM EDT [facility] Total Protein 7.0 6.0 - 8.0 g/dL LAB CHEMISTRY METHOD 12/25/2024 7:03 PM EDT [facility] Albumin 4.6 3.2 - 5.0 g/dL LAB CHEMISTRY METHOD 12/25/2024 7:03 PM EDT [facility] Total Bilirubin 0.8 0.0 - 1.4 mg/dL LAB CHEMISTRY METHOD 12/25/2024 7:03 PM EDT [facility] Blood Venous blood specimen / Unknown Venipuncture / Unknown 12/25/2024 4:00 PM EDT 12/25/2024 4:00 PM EDT us Fadi Jaramillo MD LAB BLOOD ORDERABLES Final Resu lt [facility] [address] [place] [address], [place] [phone] * POC glucose manually resulted (12/08/2024 1:06 PM EDT) Only the most recent of2 resultswithin the time period is included. Glucose POC 307 mg/dL Blood Capillary blood specimen / Unknown 12/08/2024 1:06 PM EDT us Cassandra MENDOZA POINT OF CARE TEST ENTER/ED IT ORDERABLES Final Result * External Diabetic Retina Eye Exam Report (11/25/2024) Anatomical Region Laterality Modality Ultrasound us Provider [facility] US PROCEDURES Final Result * XR Knee 4+ Views bilat (10/16/2024 1:41 PM EDT) Anatomical Region Laterality Modality Lower Extremities, Knee Bilateral Radiogra phic Imaging 10/16/2024 3:12 PM EDT Impressions 10/16/2024 3:14 PM EDT No acute fracture or dislocation. -------- FINAL REPORT -------- Dictated By: Adriana Rothman Dictated Date: 10/16/2024 15:12 ET Assigned Physician: Adriana Rothman Reviewed and Electronically Signed By: Adriana Rothman Signed Date: 10/16/2024 15:14 ET Workstation ID: [id number] Transcribed By: Self Edit Transcribed Date: 10/16/2024 [...] Signed Date: 10/16/2024 15:14 ET Workstation ID: [id number] Transcribed By: Self Edit Transcribed Date: 10/16/2024 15:12 ET Aden MENDOZA IMG XR PROCEDURES Final Result * Urine Albumin Creatinine Ratio (12/12/2023) Urine Albumin Creatinine Ratio Abstracted Historical Provider HEALTH MAINTENANCE Final Result * Hepatitis C Screening (04/01/2021) Hepatitis C Screening Abstracted Historical Provider HEALTH MAINTENANCE Final Result from Last 3 Months or Most Recently Relevant to Health Maintenance Insurance [facility] Care Teams Air Carrier Inspector Relationship Specialty Start Date End Date Fadi Jaramillo MD [address] [place] [address] PCP - General Internal Medicine 08/19/20
== END 2024-12-28 13:54 | disposition home or self-care (01) ==
LOC: HO.HCS 13:09
PROVIDERS: Visit Provider Internal Medicine Cardiovascular Disease
DX: I20.89 Other forms of angina pectoris (principal)
CPT/HCPCS: 99214

== ENCOUNTER → 2024-12-28 13:09 | Outpatient (BNVA) | payer OTHER, SELFPAY | PROVIDERS: Visit Provider Internal Medicine Cardiovascular Disease | DX: I20.89 Other forms of angina pectoris (principal) | CPT/HCPCS: 99212 ==

== ENCOUNTER 2025-01-19 11:45 | Emergency (ER) | payer OTHER, SELFPAY ==
--- NOTE | ~2025-01-19 | CT_ITS ---
EXAMINATION: CT HEAD WITHOUT CONTRAST CLINICAL INFORMATION: Generalized weakness, rule out bleed, mass effect COMPARISON: December 16, 2023 TECHNIQUE: Contiguous axial imaging was performed from the skull base to vertex without intravenous administration of contrast. This CT examination was performed using dose optimization techniques as appropriate, variously including the following: *Automated exposure control *Adjustment of mA and/or kV according to patient size (this includes techniques or standardized protocols for targeted exams where dose is matched to indication/reason for exam; i.e. extremities or head) *Use of iterative reconstruction technique DLP: 894 mGy-cm FINDINGS: No acute intracranial hemorrhage, mass effect, midline shift, hydrocephalus or herniation. Dahl-white matter differentiation is normal. Posterior cranial fossa contents demonstrated no gross hemorrhage or mass effect. Normal position of the cerebellar tonsils. Sellar/suprasellar region demonstrated no gross masses. Prominence of the extra-axial CSF spaces involving mostly the frontal lobes. Polypoid mucosal thickening, maxillary sinuses. Tympanic cavities and mastoid cells are aerated. CT/CT head/brain wo IV con IMPRESSION: No acute intracranial hemorrhage. Bifrontal lobe atrophy, mild to moderate. Electronically signed by: Diony Donald MD 01/19/2025 02:10 PM EDT
--- NOTE | ~2025-01-19 | XR_ITS ---
EXAMINATION: XR CHEST CLINICAL INFORMATION: Shortness of breath, rule out pneumonia, CHF COMPARISON: November 05, 2024 TECHNIQUE: Frontal view of the chest was obtained. FINDINGS: Lung volumes are low. Lungs are clear. Heart size is within normal limits. Mediastinal structures are stable. XR/XR chest 1V IMPRESSION: No acute disease. Electronically signed by: Francisco Ames MD 01/19/2025 01:15 PM EDT
--- NOTE | 2025-01-19 11:46 | ECG_ITS ---
Test Reason : CP Blood Pressure : */* mmHG Vent. Rate : 79 BPM Atrial Rate : 79 BPM P-R Int : 188 ms QRS Dur : 74 ms QT Int : 350 ms P-R-T Axes : 27 10 68 degrees QTcB Int : 401 ms Normal sinus rhythm Low voltage QRS Septal infarct , age undetermined Abnormal ECG When compared with ECG of 05-Nov-2024 14:34, No significant change was found Referred By: Generic ED Physician Electronically Signed By: JORGE TOVAR MD
[2025-01-19 12:07] VITALS: BP 115/58; PULSE 90; RESP 22; TEMP 36.5; O2SAT 97
--- NOTE | 2025-01-19 12:16 | ED.CHESTPAIN ---
HPI - Chest Pain General Chief Complaint: Chest Pain Stated Complaint: SOB, chest pain, weakness Time Seen by Provider: 01/19/25 12:16 Source: patient and family (Spouse: Norma) Mode of arrival: ambulatory Limitations: no limitations History of Present Illness ED Provider: Dr. Nasim Taylor HPI narrative: 59-year-old male history of diabetes mellitus, NSTEMI 01/2023 with 2 stents, stroke 02/2023, TIA, stable angina who presents emergency department for evaluation of chest pain, weakness, shortness of breath. Patient developed a pressure-like pain in the center of his chest at 04:00 hours. The pain has been constant since that time. He states the pain is currently 8/10. He states that he is feeling very weak in his arms and legs are heavy to the point where he is having difficulty walking. At triage, the patient appeared to be weak, had difficulty standing difficulty answering questions so he is brought back to the emergency department immediately and I evaluated him in his room. Patient defers answering questions to his , Norma who is here in the emergency department. She states that he also had similar chest pain Saturday morning that lasted a proximally 4 hours, pain was associated with shortness of breath and weakness and the patient's slept and woke up and felt better. 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 states he has had similar presentations in the past for in his had generalized weakness without specific diagnosis.He denied fever but did complain of chills. He denied cough, nausea, vomiting, diarrhea. He has had no frequency, urgency or dysuria. He has not noticed any dark stools or bloody stools. Patient is here in the emergency department on 11/05/2024 for chest pain and bilateral upper extremity weakness/heaviness, workup was unremarkable and the patient was discharged home. Related Data Previous Rx's ?Medication ?Instructions ?Recorded clopidogrel 75 mg tablet 75 mg PO DAILY #90 tabs 06/15/24 carvedilol 3.125 mg tablet 3.125 mg PO BID #180 tabs 07/15/24 Held on 12/28/24. Instructions: Doctor's Order atorvastatin 80 mg tablet 80 mg PO BEDTIME #90 tabs 08/17/24 Held on 12/28/24. Instructions: Doctor's Order lorazepam 0.5 mg tablet (Ativan) 0.5 mg PO TID PRN anxiety, chest 01/19/25 pain, shortness of breath #10 tabs omeprazole 20 mg capsule,delayed 20 mg PO DAILY 30 days #30 caps 01/19/25 release Allergies Allergy/AdvReac Type Severity Reaction Status Date / Time perflutren (From [facility]) AdvReac Back Pain Verified 01/19/25 12:25 Review of Systems Review of Systems: Yes all other systems are reviewed and are negative [facility] Past Medical History [facility] Narrative: Social history: He lives in his who is here in the emergency department with him. He denies tobacco use, alcohol use and drug use. Medical History STEMI (ST elevation myocardial infarction) Surgical History Hx of cardiac cath Family History Family History Father CAD (coronary artery disease) Mother Cancer Social History Social History Patient Tobacco Use Status: Never used Tobacco Advance Directives: No Advance Directives Information Provided: Yes Physical Exam Vital Signs: Vital Signs: Last Vital Signs Temp 98 F 01/19/25 18:06 Pulse 75 01/19/25 18:06 Resp 14 01/19/25 18:06 BP 144/88 H 01/19/25 18:06 Pulse Ox 96 01/19/25 18:06 O2 Del Method Room Air 01/19/25 14:03 BMI result Body Mass Index 29.2 Vital signs revealed a elevated respiratory rate of 22 otherwise unremarkable, point of care glucose was 125. Exam: General: Awake, somnolent, answers questions appropriately in a very soft voice, oriented to person and place. Head: Normocephalic, atraumatic EENT: PERRL, Lids normal, sclera normal, conjunctiva normal, nose normal , ears normal, throat without erythema or exudates Neck: Supple, no adenopathy Lung: breath sounds symmetric, no wheezing, rales or rhonchi Chest: symmetric movement, nontender Heart: regular rate and rhythm, normal S1, S2 no murmurs or rubs Abdomen: soft, non-tender, nondistended, normal bowel sounds Back: no vertebral tenderness, no CVAT Extremities: no deformities, moves all extremities symmetrically Neuro: General: ?Awake, somnolent, oriented to person, place, answers questions appropriately but defers most answers to his , speaks in the low soft voice Cranial nerves: ?Cranial nerves ?intact Strength: ?Was not able to hold his extremities up against gravity but can move them from [id number] Cerebellar: ?Not able to test secondary to generalized weakness Psych: Pleasant, cooperative Medications Administered Discontinued Medications Generic Name Dose Route Start Last Admin Trade Name Freq PRN Reason Stop Dose Admin Aspirin 324 mg 01/19/25 12:18 01/19/25 12:35 Aspirin 81 Mg Tab.Chew PO 01/19/25 12:19 324 mg ONCE STA Administration Sodium Chloride 1,000 mls @ 999 mls/hr 01/19/25 12:18 01/19/25 14:02 Ns IV 01/19/25 13:18 Infused .Q1H1M STA Infusion Ketorolac Tromethamine 15 mg 01/19/25 12:18 01/19/25 12:35 Ketorolac Tromethamine 15 Mg/Ml Vial IVPUSH 01/19/25 12:19 15 mg ONCE STA Administration Medical Decision Making Medical Decision Making [facility] Narrative: 59-year-old male history of diabetes mellitus, NSTEMI 01/2023 with 2 stents, stroke 02/2023, TIA, stable angina who presents emergency department for evaluation of chest pain, weakness, shortness of breath. Patient developed a pressure-like pain in the center of his chest at 04:00 hours. The pain has been constant since that time. He states the pain is currently 8/10. He states that he is feeling very weak in his arms and legs are heavy to the point where he is having difficulty walking. At triage, the patient appeared to be weak, had difficulty standing difficulty answering questions so he is brought back to the emergency department immediately and I evaluated him in his room. Patient defers answering questions to his , Norma who is here in the emergency department. She states that he also had similar chest pain Saturday morning that lasted a proximally 4 hours, pain was associated with shortness of breath and weakness and the patient's slept and woke up and felt better. 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 states he has had similar presentations in the past for in his had generalized weakness without specific diagnosis.He denied fever but did complain of chills. He denied cough, nausea, vomiting, diarrhea. He has had no frequency, urgency or dysuria. He has not noticed any dark stools or bloody stools. Vital signs revealed an elevated respiratory rate of 22. Examination revealed somnolence, generalized weakness otherwise unremarkable. Patient is here in the emergency department on 11/05/2024 for chest pain and bilateral upper extremity weakness/heaviness, workup was unremarkable and the patient was discharged home. Differential diagnosis: ?Includes but is not limited to myocardial infarction, myocardial ischemia, hypoglycemia, stroke, intracranial bleed, mass effect, alcohol intoxication, substance use, rhabdomyolysis, anemia, electrolyte abnormalities Course: 15:14 My independent interpretation patient's laboratory evaluation is as follows: Normocytic anemia with an H&H of 13.6 and 38.9. Elevated BUN of 26 with a normal creatinine of 1.08. Troponin was below detectable limits, repeat troponin is pending. Lactic acid was elevated at 3.1-unclear what the cause of this elevation in his by do not think that he has an infectious process at this time, most likely caused by dehydration. Alcohol was below detectable limits. ESR was normal. CK normal 64. BNP normal 14. Venous pH was elevated 7.58 most likely respiratory alkalosis to do hyperventilation syndrome. Twelve EKG did not reveal any acute abnormalities, patient has did have T-waves V1 V2 consistent with old septal infarct. Chest x-ray was normal. CT scan of the brain revealed mild to moderate bilateral frontal lobe atrophy which I do not think it is related to his presentation today. I did discuss this finding with the patient in his , patient does have a follow-up appointment with the neurologist secondary to his med relapse. Given his elevated pH and I suspect that he may have had hyperventilation syndrome in his may be causing his numbness and weakness/heaviness in his upper and lower extremities. Patient did not get any relief his chest pain with the IV Toradol but he does not want any further medications at this time. I offered to give him Ativan for hyperventilation syndrome already refused in his well. 17:28 Repeat high sensitive troponin I was also below detectable limits which is reassuring. I discuss this with the patient and the patient's family. The patient most likely has acid reflux causing esophageal spasm therefore I started him on Prilosec 20 mg once a day. I told him after 1 month he should switch to Pepcid 10 mg daily. He was also advised to take Tylenol for his pain. There may be a component of anxiety to the patient's presentation , thereforehe was given Ativan 0.5 mg TID as needed for anxiety, chest pain, weakness. Patient will need to follow up with his PCP in his neurologist for further evaluation of the frontal lobes. The radiology reading was cut and pasted into the discharge instructions so the patient can review these results with his providers. Differential Diagnosis Differential Diagnoses: The differential diagnosis associated with the presentation includes (See above) Admission/Observation Consideration of admission/observation: Escalation of care including admission/observation considered (Yes) Lab Data MDM Lab Attestation statement: I reviewed the patient's lab results. 01/19/25 12:56 01/19/25 12:56 Labs: Lab Results 01/19/25 01/19/25 01/19/25 Range/Units 12:02 12:37 12:56 WBC 5.3 (4.8-10.8) X10*3/uL RBC 4.62 (4.60-5.80) X10*6/uL Hgb 13.6 L (14.0-18.0) g/dl Hct 38.9 L (42.0-52.0) % MCV 84.2 (80.0-98.0) fL MCH 29.4 (27.0-33.0) pg MCHC 35.0 (31.0-36.0) g/dl RDW 12.7 (11.0-16.0) % Plt Count 193 (160-400) X10*3/uL MPV 10.6 (9.4-12.4) fL Immature Gran % (Auto) 0.2 (0.0-0.4) % Neut % (Auto) 61.6 (45-73) % Lymph % (Auto) 23.2 (20-40) % Cascade % (Auto) 12.4 H (2-11) % Eos % (Auto) 1.7 (0-4) % Baso % (Auto) 0.9 (0-2) % Lymph # (Auto) 1.2 (1.2-4.9) X10*3/uL Cascade # (Auto) 0.7 (0.1-1.2) X10*3/uL Eos # (Auto) 0.1 (0.0-0.4) X10*3/uL Baso # (Auto) 0.1 (0.0-0.2) X10*3/uL Abs Immat Gran (auto) 0.01 (0.00-0.03) X10*3/uL Absolute Neuts (auto) 3.3 (2.0-8.3) x10*3/uL Absolute Nucleated RBC 0.000 (0.0-0.012) X10*3/uL Nucleated RBC % (auto) 0.0 (0.0-0.2) /100WBC ESR 3 (0-15) MM/HR PT (10.9-12.4) SEC INR (0.9-1.1) APTT (26.7-34.1) SEC VBG pH (7.32-7.43) VBG pCO2 mmHg VBG pO2 mmHg VBG HCO3 (22-26) mmol/L VBG O2 Saturation % VBG Base Excess mmol/L Sodium 139 (135-145) mmol/L Potassium 3.8 (3.3-5.1) mmol/L Chloride 108 (96-108) mmol/L Carbon Dioxide 23 (22-29) mmol/L Anion Gap 12 (12-20) BUN 26 H (9-16) mg/dL Creatinine 1.08 (0.5-1.4) mg/dL Estim Creat Clear Calc 79.9 Estimated GFR > 60 POC Glucose 125 H (60-115) mg/dL Random Glucose 92 (60-115) mg/dL Lactic Acid 3.1 H* (0.5-2.0) mmol/L Lactic Acid F/U @ 2Hr (0.5-2.0) mmol/L Calcium 9.5 (8.4-10.2) mg/dL Magnesium 2.2 (1.6-2.6) mg/dL Total Bilirubin 0.9 (0.0-1.0) mg/dL AST 23 (5-37) U/L ALT 30 (0-40) U/L Alkaline Phosphatase 70 (39-117) U/L Total Creatine Kinase 64 (38-174) U/L Troponin I High Sens < 2.7 (<3.5-35.0) ng/L B-Natriuretic Peptide (<100) pg/mL Total Protein (6.5-8.0) g/dL Albumin (3.5-5.0) g/dL Lipase (8-78) U/L TSH (0.32-4.0) uIU/mL Hold Red Top Ethyl Alcohol mg/dL COVID-19 ([facility]) Negative (Negative) COVID-19 Clin Com See Note 01/19/25 01/19/25 01/19/25 Range/Units 12:56 13:06 13:23 WBC (4.8-10.8) X10*3/uL RBC (4.60-5.80) X10*6/uL Hgb (14.0-18.0) g/dl Hct (42.0-52.0) % MCV (80.0-98.0) fL MCH (27.0-33.0) pg MCHC (31.0-36.0) g/dl RDW (11.0-16.0) % Plt Count (160-400) X10*3/uL MPV (9.4-12.4) fL Immature Gran % (Auto) (0.0-0.4) % Neut % (Auto) (45-73) % Lymph % (Auto) (20-40) % Cascade % (Auto) (2-11) % Eos % (Auto) (0-4) % Baso % (Auto) (0-2) % Lymph # (Auto) (1.2-4.9) X10*3/uL Cascade # (Auto) (0.1-1.2) X10*3/uL Eos # (Auto) (0.0-0.4) X10*3/uL Baso # (Auto) (0.0-0.2) X10*3/uL Abs Immat Gran (auto) (0.00-0.03) X10*3/uL Absolute Neuts (auto) (2.0-8.3) x10*3/uL Absolute Nucleated RBC (0.0-0.012) X10*3/uL Nucleated RBC % (auto) (0.0-0.2) /100WBC ESR (0-15) MM/HR PT 10.8 L (10.9-12.4) SEC INR 0.9 (0.9-1.1) APTT 29.9 (26.7-34.1) SEC VBG pH 7.58 H (7.32-7.43) VBG pCO2 24 mmHg VBG pO2 50 mmHg VBG HCO3 23 (22-26) mmol/L VBG O2 Saturation 85.0 % VBG Base Excess 2.8 mmol/L Sodium (135-145) mmol/L Potassium (3.3-5.1) mmol/L Chloride (96-108) mmol/L Carbon Dioxide (22-29) mmol/L Anion Gap (12-20) BUN (9-16) mg/dL Creatinine (0.5-1.4) mg/dL Estim Creat Clear Calc Estimated GFR POC Glucose (60-115) mg/dL Random Glucose (60-115) mg/dL Lactic Acid (0.5-2.0) mmol/L Lactic Acid F/U @ 2Hr (0.5-2.0) mmol/L Calcium (8.4-10.2) mg/dL Magnesium (1.6-2.6) mg/dL Total Bilirubin (0.0-1.0) mg/dL AST (5-37) U/L ALT (0-40) U/L Alkaline Phosphatase (39-117) U/L Total Creatine Kinase (38-174) U/L Troponin I High Sens < 2.7 (<3.5-35.0) ng/L B-Natriuretic Peptide 14 (<100) pg/mL Total Protein 6.7 (6.5-8.0) g/dL Albumin 4.6 (3.5-5.0) g/dL Lipase 30 (8-78) U/L TSH 1.72 (0.32-4.0) uIU/mL Hold Red Top See Note Ethyl Alcohol < 10 mg/dL COVID-19 ([facility]) (Negative) COVID-19 Clin Com 01/19/25 Range/Units 15:59 WBC (4.8-10.8) X10*3/uL RBC (4.60-5.80) X10*6/uL Hgb (14.0-18.0) g/dl Hct (42.0-52.0) % MCV (80.0-98.0) fL MCH (27.0-33.0) pg MCHC (31.0-36.0) g/dl RDW (11.0-16.0) % Plt Count (160-400) X10*3/uL MPV (9.4-12.4) fL Immature Gran % (Auto) (0.0-0.4) % Neut % (Auto) (45-73) % Lymph % (Auto) (20-40) % Cascade % (Auto) (2-11) % Eos % (Auto) (0-4) % Baso % (Auto) (0-2) % Lymph # (Auto) (1.2-4.9) X10*3/uL Cascade # (Auto) (0.1-1.2) X10*3/uL Eos # (Auto) (0.0-0.4) X10*3/uL Baso # (Auto) (0.0-0.2) X10*3/uL Abs Immat Gran (auto) (0.00-0.03) X10*3/uL Absolute Neuts (auto) (2.0-8.3) x10*3/uL Absolute Nucleated RBC (0.0-0.012) X10*3/uL Nucleated RBC % (auto) (0.0-0.2) /100WBC ESR (0-15) MM/HR PT (10.9-12.4) SEC INR (0.9-1.1) APTT (26.7-34.1) SEC VBG pH (7.32-7.43) VBG pCO2 mmHg VBG pO2 mmHg VBG HCO3 (22-26) mmol/L VBG O2 Saturation % VBG Base Excess mmol/L Sodium (135-145) mmol/L Potassium (3.3-5.1) mmol/L Chloride (96-108) mmol/L Carbon Dioxide (22-29) mmol/L Anion Gap (12-20) BUN (9-16) mg/dL Creatinine (0.5-1.4) mg/dL Estim Creat Clear Calc Estimated GFR POC Glucose (60-115) mg/dL Random Glucose (60-115) mg/dL Lactic Acid (0.5-2.0) mmol/L Lactic Acid F/U @ 2Hr 0.7 (0.5-2.0) mmol/L Calcium (8.4-10.2) mg/dL Magnesium (1.6-2.6) mg/dL Total Bilirubin (0.0-1.0) mg/dL AST (5-37) U/L ALT (0-40) U/L Alkaline Phosphatase (39-117) U/L Total Creatine Kinase (38-174) U/L Troponin I High Sens < 2.7 (<3.5-35.0) ng/L B-Natriuretic Peptide (<100) pg/mL Total Protein (6.5-8.0) g/dL Albumin (3.5-5.0) g/dL Lipase (8-78) U/L TSH (0.32-4.0) uIU/mL Hold Red Top Ethyl Alcohol mg/dL COVID-19 ([facility]) (Negative) COVID-19 Clin Com Independent Interpretation I performed an independent interpretation of an: EKG and Plain X-Ray Interpretation: My interpretation patient's 12 EKG done on 01/19/2025 at 11:52 hours is as follows: Normal sinus rhythm rate of 79, normal ID interval, QRS and QTC interval, no ST segment elevation, no ST segment depression, nonspecific T-wave abnormalities, Q-waves V1 and V2 consistent with an old septal infarct. Compared to an EKG dated 11/05/2024 at 14:34 hours, Q-waves are old, nonspecific T-wave abnormalities are new, no other significant changes. My interpretation patient's chest x-ray is as follows: No acute disease Radiology Impression Discussion of test interpretation with radiology: I have reviewed the radiologist's reading. Radiologist Impression: CT head/brain wo IV con IMPRESSION: No acute intracranial hemorrhage. Bifrontal lobe atrophy, mild to moderate. Electronically signed by: Diony Donald MD 01/19/2025 02:10 PM XR chest 1V IMPRESSION: No acute disease. Electronically signed by: Francisco Ames MD 01/19/2025 01:15 PM EDT Independent Historian Clinical information obtained from an independent historian. History obtained from or confirmed by: Spouse External Record Review External record reviewed: Office record Prescription Management I considered prescription management with: Other (Anti anxiolytic: Ativan) Chronic Conditions Patient?s care impacted by: Diabetes and Hypertension Critical Care Time Critical Care Time Critical Care Time: Yes Total Critical Care Time: 45 Attestation: Critical Care: The patient was critically ill with a high probability of imminent or life threatening deterioration. I spent greater than 30 minutes of discontinuous time evaluating the patient,delivering critical care at the bedside, discussing and evaluating pertinent data with consultants. Critical care time does not include time spent performing separately billable procedures or teaching. Total time spent performing critical care was 45 minutes. Discharge Plan Discharge Clinical Impression: Chest pain, Acute hyperventilation syndrome, Generalized muscle weakness Patient Disposition: Home, Self-Care Instructions: Chest Pain (ED), Hyperventilation (ED) Additional Instructions: You had a complete blood count, comprehensive metabolic panel, CK, high sensitive troponin I x2, chest x-ray and EKG. All of these tests were unremarkable which is reassuring. This suggests that your chest pain is not caused by heart damage your heart attack. Your venous pH was elevated at 7.58 (normal is 7.4). This is often caused by hyperventilation syndrome (breathing to rapidly) which is often triggered by a stressor to your body such as chest pain, stress or anxiety. This then causes your body to released adrenaline which then causes you to breathe faster and you get stuck in a cycle of adrenal release and breathing faster. Hyperventilation syndrome can cause lightheadedness, dizziness, numbness, heaviness in your extremities, cramping in your extremities. At this time I believe that your chest pain is most likely caused by too much acid in your stomach which is then traveling to the esophagus causing your esophagus to go into spasm (gastroesophageal reflux disease). Therefore I am starting you on Prilosec (omeprazole) 20 mg pills, 1 pill once a day for 1 month. ?This medication shuts off your acid production and lets the inflammation in your stomach and esophagus heal. After 1 month I want you to take Pepcid (famotidine) 20 mg once a day and this reduces the amount of acid in your stomach. You can also take Tylenol 500 mg pills, 2 pills every 6 hours as needed for pain. Take Ativan 0.5 mg pills, 1 pill every 6 hours chest pain, shortness of breath or anxiety. ?This medication will make you sleepy, do not drive or work while taking this medication. ?This medication can be addicting, if your concerned about addiction you can ask the pharmacist for less medications or do not get the prescription filled. Continue taking your other medications as prescribed. Follow-up with your doctor in 2 days. Please return to the emergency department if your symptoms get worse or if you develop any symptoms that are concerning to you. Your CT reading by the radiologist noted atrophy of your frontal lobes. As we discussed, I do not think that this is related to your weakness or your other symptoms that you presented with today. You should discuss this finding with the your PCP and with the neurologist that you going to see for your memory loss. CT head/brain wo IV con IMPRESSION: No acute intracranial hemorrhage. Bifrontal lobe atrophy, mild to moderate. Electronically signed by: Diony Donald MD 01/19/2025 02:10 PM Prescriptions: New lorazepam [Ativan] 0.5 mg tablet 0.5 mg PO TID PRN (Reason: anxiety, chest pain, shortness of breath) Qty: 10 0RF Rx Instructions: Partial fill upon patient request omeprazole 20 mg capsule,delayed release(DR/EC) 20 mg PO DAILY 30 Days Qty: 30 0RF No Action clopidogrel 75 mg tablet 75 mg PO DAILY Qty: 90 3RF carvedilol 3.125 mg tablet 3.125 mg PO BID Qty: 180 3RF atorvastatin 80 mg tablet 80 mg PO BEDTIME Qty: 90 3RF Interventions: ED Discharge Assessment Last Done: 01/19/25 18:06 Discharge Date/Time: 01/19/25 18:07 Print Language: Cameroonian
[2025-01-19 12:23] VITALS: BP 131/79; PULSE 82; RESP 21; TEMP 36.4; O2SAT 100; BMI 29.2
[2025-01-19 13:03] LABS: MANUAL DIFF FLAG NO
[2025-01-19 13:10] LABS: VBG HCO3 23 mmol/L (22-26); VBG O2 % Saturation 85.0 %
[2025-01-19 13:10] LABS: Hematocrit 38.9 % (42.0-52.0); Hemoglobin 13.6 g/dl (14.0-18.0); Imm Gran Abs Auto 0.01 X10*3/uL (0.00-0.03); Imm Gran Pct Auto 0.2 % (0.0-0.4); Lymphocytes Absolute Auto 1.2 X10*3/uL (1.2-4.9); Mean Corpuscular HGB Conc 35.0 g/dl (31.0-36.0); Mean Corpuscular Hemoglobin 29.4 pg (27.0-33.0); Mean Corpuscular Volume 84.2 fL (80.0-98.0); NRBC Abs Auto 0.000 X10*3/uL (0.0-0.012); NRBC Pct Auto 0.0 /100WBC (0.0-0.2); Platelet Count 193 X10*3/uL (160-400); Red Blood Count 4.62 X10*6/uL (4.60-5.80); White Blood Count 5.3 X10*3/uL (4.8-10.8)
[2025-01-19 13:10] LABS: Venous Blood Gas Refer to POC result
[2025-01-19 13:22] LABS: COVID-19 Test Negative (Negative); IDNOW Serial# 55D5AD1C
[2025-01-19 13:29] LABS: B Type Natriuretic Peptide 14 pg/mL (<100)
[2025-01-19 13:32] LABS: Alanine Aminotransferase 30 U/L (0-40); Albumin Level 4.6 g/dL (3.5-5.0); Alkaline Phosphatase 70 U/L (39-117); Anion Gap 12 (12-20); Aspartate Amino Transferase 23 U/L (5-37); Blood Urea Nitrogen 26 mg/dL (9-16); Calcium 9.5 mg/dL (8.4-10.2); Carbon Dioxide 23 mmol/L (22-29); Chloride 108 mmol/L (96-108); Creatinine Clr Calc Pharmacy 79.9; Estimated Glomerular Filt Rate > 60; Lipase 30 U/L (8-78); Magnesium 2.2 mg/dL (1.6-2.6); Potassium 3.8 mmol/L (3.3-5.1); Sodium 139 mmol/L (135-145); Total Protein 6.7 g/dL (6.5-8.0); Troponin-I High Sensitivity < 2.7 ng/L (<3.5-35.0)
[2025-01-19 13:43] LABS: INTERNATIONAL NORM RATIO 0.9 (0.9-1.1); Prothrombin Time 10.8 SEC (10.9-12.4)
[2025-01-19 13:46] LABS: Partial Thromboplastin Time 29.9 SEC (26.7-34.1)
[2025-01-19 14:03] VITALS: BP 134/80; PULSE 78; RESP 13; O2SAT 93
--- NOTE | 2025-01-19 14:56 | PC.NURSE ---
Pt A&O X4 discussing plan with provider. VSS Pt appears more alert than previous. NAD.
[2025-01-19 15:00] LABS: Reflex Lactate? Lactic Acid Added
--- OUTSIDE RECORDS SUMMARY | 2025-01-19 15:16 | XMS_ITS | Clinical Summary ---
Author Organization [facility] Address [address] [id number] Care Team Providers Care Housekeeper Nanny Name Role Phone Fadi Jaramillo MD Primary Care Provider [phone] Allergies Active Allergy Reactions Criticality Noted Date [...] Tdap) 04/09/2017 04/09/2007 COVID-19 Vaccine (3 - 2024-2 6 season) 2025 10/08/2020, 09/18/2020 Influenza Vaccine (#1) 2025 Pneumococcal Vaccine Aged Out No long er eligible based on patient's age to complete this topic RSV Ped < 20 months Aged Out No longe r eligible based on patient's age to complete this topic Care Teams Housekeeper Nanny Relationship Specialty Start Date End Date Fadi Jaramillo MD PCP - General Internal Medicine 03/20/23
--- OUTSIDE RECORDS SUMMARY | 2025-01-19 15:16 | XMS_ITS | Clinical Summary ---
Author Organization [address] Address [address] [place] [phone] Phone Care Team Providers Care Magneto Specialist Name Role Phone Fadi Jaramillo MD Primary Care Provider Allergies Active Allergy Reactions Criticality Noted Date [...] for mild pain. Taking 2 pills Active blood-glucose meter kit Use to check bs daily 1 each 5 Active metFORMIN XR (GLUCOPHAGE-XR) 500 mg 24 hr tabletIndications :Uncontrolled type 2 diabetes mellitus with hyperglycemia (CMS/HCC V24, CMS/HCC V28) 2 tabs with breakfast and 2 tabs with dinner 360 each 1 5 Active dulaglutide (TRULICITY) 0.75 mg/0.5 mL pen injector injectionIndicati ons:Uncontrolled type 2 diabetes mellitus with hyperglycemia ([facility] V24, [facility] V28) Inject 0.5 mL (0.75 mg total) under the skin every 7 (seven) days. 2 mL 5 5 Active freestyle 28 gauge lancetsIndication s:Type 2 diabetes mellitus with other specified complication, without long-term current use of insulin ([facility] V24, [facility] V28) Check blood sugar 3 times a day 100 each 11 5 026 Active blood sugar diagnostic (FreeStyle Lite Strips) test stripIndications: Type 2 diabetes mellitus with other specified complication, without long-term current use of insulin ([facility] V24, [facility] V28) Use to check 3 times a day 100 each 12 5 026 Active blood sugar diagnostic (FreeStyle Lite Strips) test strip Use to check bs daily 100 each 12 5 025 Discontin ued(Reord er) freestyle 28 gauge lancets Check blood sugar 1 times a day or as directed 100 each 5 025 Discontin ued(Reord er) Active Problems Problem Noted Date Diagnosed Date Primary hypertension 11/24/2024 History of stroke 11/24/2024 History of WI (myocardial infarction) 11/24/2024 Acute exacerbation of chronic [...] so. He had L/S MRI 09/24/24 at [facility] that shows overall mild degenerative changes, L4-5 [...] Resolved Date Controlled type 2 diabetes m ellitus without complication, without long-term current use of insulin ([facility] V24, [facility] V28) 04/14/2021 Encounters Date Type Department Care Team Description 12/29/2024 1:30 PM EDT Consult Pulmonolgy [facility] [address] [place] [phone] Essence Atkinson MD [facility] 12/28/2024 Telephone Endocrinology [address] [phone] Cassandra Garcia PA 12/18/2024 Telephone Adult Medicine [address] [phone] Fadi Jaramillo MD 12/10/2024 Telephone Adult Medicine [address] [phone] Fadi Jaramillo MD 12/10/2024 Telephone Endocrinology [address] [phone] Cassandra Garcia PA 12/08/2024 1:00 PM EDT Office Visit [address] [phone] Cassandra Garcia PA Uncontrolled type 2 diabetes mellitus with hyperglycemia ([facility] V24, [facility] V28) (Primary Dx); Mixed hyperlipidemia; Primary hypertension 12/08/2024 Telephone Adult Medicine [address] [phone] Susana Zaidi MA 11/30/2024 Telephone Endocrinology [address] [phone] Jessy Turner RN 11/24/2024 1:30 PM EDT Office Visit Endocrinology [address] [phone] Cassandra Garcia PA Type 2 diabetes mellitus with other specified complication, without long-term current use of insulin ([facility] V24, [facility] V28) (Primary Dx); Mixed hyperlipidemia; Primary hypertension 11/23/[address] [phone] Cee Crowley PA 11/18/2024 3:30 PM EDT Office Visit [address] [phone] Oriana Castillo, ALBERTO Chest pain, unspecified type (Primary Dx); Heavy breathing; SOB (shortness of breath) on exertion; Depression, unspecified depression type 11/17/[address] [phone] aFdi Jaramillo MD 10/19/2024 8:00 AM EDT Office Visit [address] [phone] Fadi Jaramillo MD Spondylosis of lumbosacral region, unspecified spinal osteoarthritis complication status (Primary Dx); Uncontrolled type 2 diabetes mellitus with hyperglycemia ([facility] V24, [facility] V28); Other chronic pain; Pure hypercholesterolemia from Last 3 Months Immunizations Name Administration [...] unspecified 08/30/2005 Displacement of thoracic intervertebral disc 2007 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/30/2005 2000: surgery Stroke ([facility] V24, [facility] V28) Heart attack ([facility] V24, [facility] V28) Family History Medical History Relation Name [...] Sign Reading Time Taken Comments Blood Pressure 116/60 12/29/2024 1:53 PM EDT Pulse 78 12/29/2024 1:53 PM EDT Temperature 36.1 C (97 F) 12/29/2024 1:53 PM EDT Respiratory Rate 20 12/29/2024 1:53 PM EDT Oxygen Saturation 98% 12/29/2024 1:53 PM EDT Inhaled Oxygen Concentration - - Weight 85.9 kg (189 lb 6.4 oz) 12/29/2024 1:53 P M EDT Height 172.7 cm (5' 8 ) 12/29/2024 1:53 PM EDT Body Mass Index 28.8 12/29/2024 1:53 PM EDT Plan of Treatment Upcoming Encounters Date Type Department Care Team (Late st Contact Info) Description 02/16/2025 3:30 PM EDT Office Visit [facility] [address] [place] [address] Rajeev Fowler MD [address] [place] [phone] 02/18/2025 8:00 AM EDT Office Visit Adult Medicine [address] [phone] Fadi Jaramillo MD [address] [place] [phone] 02/24/2025 3:45 PM EDT Office Visit Endocrinology [address] [place] [phone] Cassandra Garcia PA [address] [place] [address] 04/28/2025 1:00 PM EST Ancillary Procedure [facility] [address] [phone] 04/28/2025 1:45 PM EST Office Visit [facility] [address] [phone] Essence Atkinson MD [address] [phone] Health Maintenance Due Date Last Done Comments Diabetes: Annual Foot Exam 1976 Hepatitis B Vaccines (1 of 3 - 19+ 3-dose series) 1985 Pneumococcal Vaccine: 50+ Years (1 of 2 - PCV) 1985 Zoster Vaccines (1 of 2) 2016 DTaP,Tdap,and Td Vaccines (2 - Td or Tdap) 04/09/2017 04/09/2007 Colorectal Cancer Screening: Colonoscopy 04/11/2022 HIV Screening 04/11/2022 Social Influencers of Health Screening 04/11/2022 Depression Screening 05/13/2024 Diabetes: Annual Urine Albumin-Creatinine Ratio (uACR) 12/11/2024 12/12/2023 COVID-19 Vaccine ( season) 2025 10/08/2020, 09/18/2020 Influenza Vaccine (#1) 2025 Diabetes: Blood Sugar [...] complication, without long-term current use of insulin ([facility]/HCC V24, CMS/HCC V28) LIPID PANEL WITH REFLEX TO DIRECT LDL Routine 12/25/2024 4:00 PM EDT Primary hypertension Mixed hyperlipidemia COMPREHENSIVE METABOLIC PANEL Routine 12/25/2024 4:00 PM EDT Primary hypertension Mixed hyperlipidemia POC GLUCOSE Routine 12/08/2024 1:06 PM EDT Uncontrolled type 2 diabetes mellitus with hyperglycemia (CMS/HCC V24, CMS/HCC V28) EXTERNAL DIABETIC RETINA EYE EXAM 11/25/2024 POC GLUCOSE Routine 11/24/2024 1:33 PM EDT Type 2 diabetes mellitus with other specified complication, without long-term current use of insulin (CMS/HCC V24, CMS/HCC V28) HM URINE ALBUMIN CREATININE RATIO Routine 12/12/2023 HM HEPATITIS C SCREENING Routine 04/01/2021 from Last 3 Months or Most Recently Relevant to Health Maintenance Results * Lipid panel with reflex to direct LDL (12/25/2024 4:00 PM EDT) [facility] Cholesterol 104 0 - 200 mg/dL LAB CHEMISTRY METHOD 12/25/2024 7:[address] [facility] Triglycerides 98 0 - 150 mg/dL LAB CHEMISTRY METHOD 12/25/2024 7:[address] [facility] HDL 48 >=40 mg/dL LAB CHEMISTRY METHOD 12/25/2024 7:[address] [facility] LDL Calculated 36 0 - 100 mg/dL LAB CHEMISTRY METHOD 12/25/2024 7:[address] [facility] Comment:Estimated LDL Calcul ated using equation: Total cholesterol - HDL cholesterol - (Triglycerides/5) VLDL Cholesterol Jovon 19.6 mg/dL LAB CHEMISTRY METHOD 12/25/2024 7:[address] [facility] Non HDL Chol. (LDL+VLDL) 56 <145 mg/dL LAB CHEMISTRY METHOD 12/25/2024 7:[address] [facility] Chol/HDL Ratio 2.2 0.0 - 4.4 LAB CHEMISTRY METHOD 12/25/2024 7:[address] [facility] Blood Venous blood specimen / Unknown Venipuncture / Unknown 12/25/2024 4:00 PM EDT 12/25/2024 4:00 PM EDT us Fadi Jaramillo MD LAB BLOOD ORDERABLES Final Resu lt [facility] [address] [place] [address], * (ABNORMAL) Hemoglobin A1c (12/25/2024 4:00 PM EDT) [facility] Hemoglobin A1C 10.0(H) <6.5 % LAB CHEMISTRY METHOD 12/25/2024 8:[address] [facility] Mean Bld Glu Estim. 240 mg/dL LAB CHEMISTRY METHOD 12/25/2024 8:59 PM [facility] Blood Venous blood specimen / Unknown Venipuncture / Unknown 12/25/2024 4:00 PM EDT 12/25/2024 4:00 PM EDT us Cassandra MENDOZA LAB BLOOD ORDERABLES Final Result [facility] [address] [place] [address], [place] [phone] * (ABNORMAL) Comprehensive metabolic panel (12/25/2024 4:00 PM EDT) [facility] Sodium 136 133 - 145 mmol/L LAB CHEMISTRY METHOD 12/25/2024 7:03 PM [facility] Potassium 4.2 3.5 - 5.5 mmol/L LAB CHEMISTRY METHOD 12/25/2024 7:03 PM [facility] Chloride 103 96 - 110 mmol/L LAB CHEMISTRY METHOD 12/25/2024 7:03 PM [facility] CO2 29 21 - 32 mmol/L LAB CHEMISTRY METHOD 12/25/2024 7:03 PM [facility] Anion Gap 4 3 - 11 LAB CHEMISTRY METHOD 12/25/2024 7:03 PM [facility] Glucose 108(H) 70 - 100 mg/dL LAB CHEMISTRY METHOD 12/25/2024 7:03 PM [facility] BUN 21 5 - 25 mg/dL LAB CHEMISTRY METHOD 12/25/2024 7:03 PM [facility] Creatinine 1.09 0.70 - 1.30 mg/dL LAB CHEMISTRY METHOD 12/25/2024 7:03 PM [facility] eGFR 79 >=60 mL/min/1. 73m2 LAB CHEMISTRY METHOD 12/25/2024 7:03 PM [facility] Comment:Calculation based on the Chronic Kidney Disease Epidemiology Collaboration (CKD-EPI) equation refit without adjustment for race. BUN/Creatinine Ratio 19.3 LAB CHEMISTRY METHOD 12/25/2024 7:03 PM [facility] Calcium 9.6 8.5 - 10.5 mg/dL LAB CHEMISTRY METHOD 12/25/2024 7:03 PM [facility] AST (SGOT) 18 10 - 42 unit/L LAB CHEMISTRY METHOD 12/25/2024 7:03 PM [facility] ALT (SGPT) 36 10 - 60 unit/L LAB CHEMISTRY METHOD 12/25/2024 7:03 PM [facility] Alkaline Phosphatase 91 42 - 121 unit/L LAB CHEMISTRY METHOD 12/25/2024 7:03 PM [facility] Total Protein 7.0 6.0 - 8.0 g/dL LAB CHEMISTRY METHOD 12/25/2024 7:03 PM [facility] Albumin 4.6 3.2 - 5.0 g/dL LAB CHEMISTRY METHOD 12/25/2024 7:03 PM [facility] Total Bilirubin 0.8 0.0 - 1.4 mg/dL LAB CHEMISTRY METHOD 12/25/2024 7:03 PM [facility] Blood Venous blood specimen / Unknown Venipuncture / Unknown 12/25/2024 4:00 PM EDT 12/25/2024 4:00 PM EDT us Fadi Jaramillo MD LAB BLOOD ORDERABLES Final Resu lt [facility] [address] [place] [address], * POC glucose manually resulted (12/08/2024 1:06 PM EDT) Only the most recent of2 resultswithin the time period is included. Glucose POC 307 mg/dL Blood Capillary blood specimen / Unknown 12/08/2024 1:06 PM EDT Cassandra MENDOZA POINT OF CARE TEST ENTER/ED IT ORDERABLES Final Result * External Diabetic Retina Eye Exam Report (11/25/2024) Anatomical Region Laterality Modality Ultrasound Provider [facility] US PROCEDURES Final Result * Urine Albumin Creatinine Ratio (12/12/2023) Pathologist [facility] Urine Albumin Creatinine Ratio Abstracted Historical Provider HEALTH MAINTENANCE Final Result * Hepatitis C Screening (04/01/2021) Pathologist [facility] Hepatitis C Screening Abstracted Historical Provider HEALTH MAINTENANCE Final Result from Last 3 Months or Most Recently Relevant to Health Maintenance Insurance [facility] [employer] Care Teams Magneto Specialist Relationship Specialty Start Date End Date Fadi Jaramillo MD [address] [place] [phone] PCP - General Internal Medicine 08/19/20
[2025-01-19 16:25] LABS: ~Lactic Acid-LAB USE ONLY 0.7 mmol/L (0.5-2.0)
[2025-01-19 16:34] LABS: Troponin-I High Sensitivity < 2.7 ng/L (<3.5-35.0)
[2025-01-19 17:00] VITALS: BP 144/88; PULSE 75; RESP 14; O2SAT 96
[2025-01-19 18:06] VITALS: BP 144/88; PULSE 75; RESP 14; TEMP 36.6; O2SAT 96
[2025-01-20 05:57] LABS: Glucose, Whole Blood 125 mg/dL (60-115)
== END 2025-01-19 18:07 | disposition home or self-care (01) ==
PROVIDERS: Emergency Provider Emergency Medicine Emergency Medical Services; PCP Internal Medicine
DX: R07.89 Other chest pain (principal); R06.02 Shortness of breath; F45.8 Other somatoform disorders; R53.1 Weakness; R94.31 Abnormal electrocardiogram [ECG] [EKG]; R11.0 Nausea; Z86.73 Personal history of transient ischemic attack (TIA), and cerebral infarction without residual deficits; Z03.818 Encounter for observation for suspected exposure to other biological agents ruled out; Z79.899 Other long term (current) drug therapy
CPT/HCPCS: 36415; 70450; 71045; 80053; 80307; 82550; 82803; 82947; 83605; 83690; 83735; 83880; 84443; 84484; 85025; 85610; 85652; 85730; 87635; 93005; 96361; 96374; 99284; 99285; J1885

== ENCOUNTER → 2025-01-19 11:46 | Outpatient (BNV) | payer OTHER, SELFPAY | PROVIDERS: Emergency Provider Emergency Medicine Emergency Medical Services; PCP Internal Medicine; Visit Provider Internal Medicine Cardiovascular Disease | DX: R94.31 Abnormal electrocardiogram [ECG] [EKG] (principal); R07.89 Other chest pain | CPT/HCPCS: 93010 ==

== ENCOUNTER → 2025-01-19 12:19 | Outpatient (BNV) | payer OTHER, SELFPAY | PROVIDERS: Emergency Provider Emergency Medicine Emergency Medical Services; PCP Internal Medicine; Visit Provider Radiology Diagnostic Radiology | DX: G31.89 Other specified degenerative diseases of nervous system (principal); R06.02 Shortness of breath | CPT/HCPCS: 70450; 71045 ==